=== PATIENT | female | born 1950 | race Caucasian/White ===

== ENCOUNTER 2018-01-18 10:16 | Outpatient (CLI) | payer MEDICARE, BC, SELFPAY ==
[2018-01-18 10:44] LABS: HCT 43.2 % (36.0-46.0); HGB 14.3 g/dL (12.0-15.5); Mean Corp. HGB Concentration 33.1 g/dL (32.0-36.0); Mean Corpuscular Hemoglobin 30.4 pg (27.0-33.0); Mean Corpuscular Volume 91.9 fL (80-95); Mean Platelet Volume 10.3 fL (8.0-11.0); Platelet Count 215 x1000/uL (130-400); RBC Distribution Width 12.8 % (11.7-14.6)
[2018-01-18 11:16] LABS: ALT 27 U/L (12-78); AST 27 U/L (15-37); Albumin 3.9 g/dL (3.4-5.0); Alkaline Phosphatase 60 U/L (46-116); Anion Gap 9.7 mmol/L (3-11); BUN 21 mg/dL (7-18); Bilirubin, Total 0.5 mg/dL (0.2-1.0); CO2 27.3 mmol/L (21.0-32.0); CREATININE 0.85 mg/dL (0.55-1.02); Calcium 9.1 mg/dL (8.5-10.1); Chloride 104 mmol/L (98-107); Cholesterol 235 mg/dL (50-200); Glucose 91 mg/dL (70-100); HDL Cholesterol 91 mg/dL (40-60); LDL CHOLESTEROL 134 mg/dL (<100); Sodium 141 mmol/L (136-145); Total Protein 7.1 g/dL (6.4-8.2); Triglyceride 74 mg/dL (30-150)
[2018-01-18 11:25] LABS: TSH (W/Ref FT4) 3.36 uIU/mL (0.358-3.74)
== END 2018-01-18 10:36 ==
PROVIDERS: PCP Nurse Practitioner; Visit Provider Nurse Practitioner
DX: G56.02 Carpal tunnel syndrome, left upper limb (principal); E78.5 Hyperlipidemia, unspecified; R53.83 Other fatigue
CPT/HCPCS: 36415; 80053; 80061; 83721; 85027; 84443

== ENCOUNTER 2018-02-07 00:46 | Outpatient (CLI) | payer MEDICARE, BC, SELFPAY ==
--- NOTE | 2018-02-07 11:30 | DI.MAMMO_ITS ---
SYMPTOM/DIAGNOSIS: BREAST CANCER SCREEN, Z12.31 BILATERAL SCREENING MAMMOGRAM: Mammograms were interpreted according to the usual protocol including computer analysis with CAD system, tomosynthesis and C view imaging. Comparison is made with 2017 from [facility]. The breasts are composed of scattered fibroglandular densities, breast density Category B. There are no suspicious masses or suspicious microcalcifications. There has been no significant change. IMPRESSION: Category 1-B, negative mammogram. Yearly screening mammography is recommended. SA ASSESSMENT OF FINDINGS: Negative. Category 1. Patient will receive a letter notifying them of these results. BI-RADS category B. There are scattered areas of fibroglandular density.
== END 2018-02-07 01:06 ==
PROVIDERS: PCP Nurse Practitioner; Visit Provider Nurse Practitioner
DX: Z12.31 Encounter for screening mammogram for malignant neoplasm of breast (principal)
CPT/HCPCS: 77063; 77067

== ENCOUNTER 2019-01-22 09:53 | Outpatient (CLI) | payer MEDICARE, BC, SELFPAY ==
[2019-01-23 11:36] LABS: Hepatitis C Ab w Rflx HCV PCR Negative (Negative)
== END 2019-01-22 10:13 ==
PROVIDERS: PCP Nurse Practitioner; Visit Provider Nurse Practitioner
DX: Z11.59 Encounter for screening for other viral diseases (principal); R69 Illness, unspecified
CPT/HCPCS: 36415; 86803

== ENCOUNTER 2019-02-21 00:34 | Outpatient (CLI) | payer MEDICARE, BC, SELFPAY ==
--- NOTE | 2019-02-21 12:04 | DI.MAMMO_ITS ---
EXAM: MAMMO SCREENING CLINICAL HISTORY: screening, Z12.39 TECHNIQUE: Mammograms were interpreted according to the usual protocol including computer analysis w [employer] CAD system, tomosynthesis and C-view imaging. COMPARISON: Current examination is compared with previous examinations including February 2018 FINDINGS: Breasts are of moderate density with fairly symmetrical distribution of fibroglandular tissue. No do minant mass or clumped microcalcification is identified in either breast. Current examination is com pared with previous examinations including February 2018 and there has been no gross interval change in appearance in comparison with the previous studies. IMPRESSION: No specific evidence of malignancy at this time. Routine screening examinations are suggested at year ly intervals due to the family history of breast carcinoma. Category 1, breast density category B. BI-RADS Cat 1 - Negative Breast Density - Category B - Scattered areas of fibroglandular density
== END 2019-02-21 00:54 ==
PROVIDERS: PCP Nurse Practitioner; Visit Provider Nurse Practitioner
DX: Z12.31 Encounter for screening mammogram for malignant neoplasm of breast (principal); Z80.3 Family history of malignant neoplasm of breast
CPT/HCPCS: 77063; 77067

== ENCOUNTER → 2019-03-21 10:08 | Outpatient (BNVA) | payer MEDICARE, BC, SELFPAY | PROVIDERS: PCP Nurse Practitioner; Referring Provider Nurse Practitioner; Visit Provider Physical Therapy Assistant | DX: Z12.11 Encounter for screening for malignant neoplasm of colon (principal); Z86.010 Personal history of colon polyps ==

== ENCOUNTER 2019-04-08 07:47 | Day surgery (SDC) | payer MEDICARE, BC, SELFPAY ==
--- NOTE | 2019-04-08 06:38 | W.COLOREPORT ---
Date of service: 04/08/19 Time of Service: 08:53 Colonoscopy Report Date of procedure: 04/08/19 Pre-op diagnosis general: Hx of colon polyps Post-op diagnosis procedure note: same (and Polyps x3, diverticulosis) Procedure: Colonoscopy with polypectomy by cold forceps Surgeon: Cathie Andino Anesthesia proc note operative: other (General/ ASA 2/Nish Ramirez, DESTINY) Estimated blood loss (mL): 5 Pathology: other (Ascending colon x2, Transverse colon x1) Complications: None Disposition: same day Indications: The patient is here for Colonoscopy pre-op. Her last screening was in 2015 and was remarkable for tubulovillious adenoma. She has no family history of colon cancer. She has not had any bowel habit changes. -Discussed colonoscopy bowel prep as well as the procedure. Discussed possible complications of the procedure to include bleeding, pain, perforation, missed small lesion/polyp, sore throat, aspiration and adverse reaction to the medications. Questions were answered to patient?s satisfaction. No guarantees were implied or given. Prep: Miralax/Dulcolax Procedure Start Time: :53 Procedure End Time: 09:34 Retraction Time: 34 minutes Findings: 3 polyps, all sessile. The ascending colon polyps were < 1 cm in size The Transverse polyp was >1 cm in size and due to its location had to be removed in a piecemeal fashion. Moderate sigmoid diverticulosis Procedure Description: After informed consent was obtained the patient was taken to the procedure room and placed in a left decubitous position. Monitors were applied and a time out was done. The patients name, date of , procedure, allergies to medications and metal in their body was reviewed. The patient was then sedated. Once sedated and comfortable a rectal exam was done. External exam was normal. Internal exam revealed a normal sphincter tone and no palpable masses. The scope was then introduced and retro-flexed. No internal hemorrhoids, polyps or masses were identified on retro-flexion. The scope was then advanced to the cecum without difficulty. The TI and appendiceal orifice were identified. The prep was adequate. The scope was then slowly retracted over 34 minutes back into the rectum. Polyps were removed with cold forceps in the ascending colon x2 and the Transverse colon x1. The polyps were all sessile. The transverse polyp was >1 cm in size and due to its location behind a fold I had to remove it piecemeal. There was also moderate diverticulosis noted in the sigmoid colon. The scope was removed and the patient was woken up and taken back to Same day surgery in stable condition. The patient tolerated the procedure well and there were no immediate complications. Follow up: The patient should follow up in 3 years unless they develop changes in bowel habits or other new gastrointestinal complaints.
--- NOTE | 2019-04-08 06:40 | W.PM.DSUDISC ---
Discharge Plan Disposition Patient Disposition: HOME Condition: Good Discharge Details Reason For Visit: SCREENING Attending Provider: Cathie Andino Primary Care Provider: Neema Duncan Home Meds and New Rx's Prescriptions: Continued Shingrix (PF) 50 mcg/0.5 mL suspension for reconstitution 50 mcg IM ONCE Qty: 1 RF: 1 Lumigan 0.01 % drops 1 drp OP DAILY RF: 0 multivitamin [Daily Vitamin] 1 EACH tablet 1 ea PO DAILY RF: 0 calcium carbonate-vitamin D3 [Calcium 500 With D] 1 EACH tablet 1 ea PO BID RF: 0 TRIAMCINOLONE ACETONIDE 30 GM OINT...G. 30 gm Topical PRN PRNRF: 0 Discontinued polyethylene glycol 3350 17 gram/dose powder 238 g PO ONCE Qty: 238 RF: 0 bisacodyl [Dulcolax (bisacodyl)] 5 mg tablet,delayed release (DR/EC) 5 mg PO ONCE Qty: 4 RF: 0 Discharge Instructions Instructions: Colorectal Polyps (DC), Diverticulosis (DC) Additional Instructions: Findings: 3 polyps Diverticulosis Follow up: Most likely 3 years Please call if you develop: fevers >101.5 Nausea or Vomiting Abdominal pain that is not transient DAY SURGERY UNIT POST ENDOSCOPY INSTRUCTIONS 1. Because there will be medication in your system for the next 24 hours, you may feel a little sleepy. Your coordination will be affected. Therefore: a. Do not drive or operate dangerous equipment for 24 hours. b. Do not drink alcohol beverages for 24 hours (not even beer). c. Plan to go home and rest for the day. 2. Generally there are no restrictions on your activity after a day or so has gone by, but you may feel a bit fatigued for a few days. 3 After you arrive home you may have a light meal and return to a normal diet as you can tolerate it without feeling sick to your stomach. 4. After surgery, you may feel pain or discomfort. This should be only transient, but if it persists please contact your doctor. 5. If there are any questions regarding the findings of your procedure, please feel free to contact your doctor. 6. If you are unable to contact your doctor with a problem, contact the hospital at [phone]. 7. Continue all your regular medications unless directed otherwise. I understand the above instructions and have no questions. Signature of Patient or Responsible Adult Escort Date/Time Name of Responsible Adult Escort Signature of Nurse Date/Time Activity:: Activity as Tolerated Diet:: High Fiber Discharge Orders Discharge Orders: Discharge Order (Routine); Ordered 04/08/19 Ordered By: Cathie Andino
[2019-04-08 08:08] VITALS: BP 111/65; PULSE 66; RESP 16; TEMP 37; O2SAT 97
[2019-04-08] MEDS: Lactated Ringers 1,000 ML 80 ML IV (08:18)
--- NOTE | 2019-04-08 09:03 | BOWEL_PTH ---
PATIENT: Natalie Gomez LOC: [facility] U#:[id number] AGE/SX: 68/F ROOM: RE04/08/[address]: Cathie Andino MD : 1950 BED: DIS: 04/08/2019 SPEC #: [id number] RECD: 04/08/19 12:42 STATUS: HUSEYIN REQ #: [id number] STEPHANIE: 04/08/19 09:[address]: Cathie Andino DEPT: Surgical Specimen RECD BY: Roseline Frost ENTERED: 04/08/19 12:44 SP TYPE: Bowel OTHR DR: Neema Duncan APRN Tissues: 1 - BIOPSY BOWEL 2 - BIOPSY BOWEL 3 - BIOPSY BOWEL Procedures: GROSS AND MICRO LEVEL 4 Comments: [id number]
[2019-04-08 10:10] VITALS: BP 98/52; PULSE 63; RESP 18; TEMP 36.6; O2SAT 100
== END 2019-04-08 10:25 | disposition home or self-care (01) ==
LOC: SUR 07:54
PROVIDERS: PCP Nurse Practitioner; Visit Provider Surgery
PROC: 0DJD8ZZ Inspection of Lower Intestinal Tract, Via Natural or Artificial Opening Endoscopic (ICD-10-PCS; CPT 45378; principal; 2019-04-08 09:00)
DX: Z12.11 Encounter for screening for malignant neoplasm of colon (principal); D12.2 Benign neoplasm of ascending colon; D12.3 Benign neoplasm of transverse colon; K57.30 Diverticulosis of large intestine without perforation or abscess without bleeding; Z86.010 Personal history of colon polyps
CPT/HCPCS: 45380; 88305

== ENCOUNTER 2020-04-16 01:19 | Outpatient (CLI) | payer MEDICARE, BC, SELFPAY ==
--- NOTE | 2020-04-16 07:15 | DI.MAMMO_ITS ---
EXAM: MAMMO SCREENING CLINICAL HISTORY: screening,z12.39 TECHNIQUE: Mammograms were interpreted according to the usual protocol including computer analysis w [employer] CAD system, tomosynthesis and C-view imaging. COMPARISON: 2016 through 2018 FINDINGS: The breasts are composed of scattered fibroglandular densities, Breast Density category B. No suspicious masses or suspicious microcalcifications are seen. No skin thickening or abnormal axillary lymph nodes are seen. There has been no significant change from prior exams. IMPRESSION: BI-RADS Category 1, Negative mammogram Yearly screening mammography is recommended. Breast Density - Category B, scattered fibroglandular densities. A negative radiographic report should not delay biopsy if a dominant or clinically suspicious mass is present. Up to ten percent of cancers are not identified on mammography. A negative report may reinforce clinical impression. Adenosis and dense breasts may obscure an underlying neoplasm. False positive reports average 6 to 10%. Patient will receive a letter notifying them of these results.
== END 2020-04-16 01:20 ==
LOC: DI 01:19
PROVIDERS: PCP Nurse Practitioner; Visit Provider Nurse Practitioner
DX: Z12.31 Encounter for screening mammogram for malignant neoplasm of breast (principal)
CPT/HCPCS: 77063; 77067

== ENCOUNTER 2020-06-29 09:25 | Day surgery (SDC) | payer MEDICARE, BC, SELFPAY ==
--- NOTE | 2020-06-29 09:31 | W.ANESPRE ---
Anesthesia Assessment and Plan Anesthesia History Personal History: No History of Anesthesia Complications Family History: No Family History of Anesthesia Complications Exercise Tolerance Exercise Tolerance: Metabolic Equivalents<4 Pertinent Negatives Pertinent Negatives: No Symptoms of GERD, No Major Cardiovascular Symptoms or Complaints and No Major Pulmonary Symptoms or Complaints Cardiac & Pulmonary Exam Cardiac Exam: Normal S1/S2 Heart Sounds Pulmonary Exam: Clear Bilateral Breath Sounds Airway Exam Known Difficult Airway: No Mallampati Class: 1 Mouth Opening: Normal (> 3cm) Thyromental Distance: Greater than 3 cm Neck Range of Motion: Full ROM Neck Circumference: Normal Teeth Condition: Normal Dentition ASA Classification ASA Score: ASA 2 ASA Emergency: No NPO Status NPO Status: NPO Clears >2 hours, Solids >8 hours Status Status: Not Relevant due to Medical History Anesthesia Plan Anesthesia Technique: MAC Anesthesia Airway Planned: Natural Airway Monitors Used: Standard Monitors General Info Date of Service This is a Shared Provider Document. All providers who document on this will be required to sign document once completed. Please Communicate with Team Date Performed: 06/29/20 Height: 5 ft 2.32 in Weight: 58.23 kg Body Mass Index (BMI): 23.2 Surgical Procedure: Operation Date: 06/29/20 12:40 Proposed Procedures Side Surgeon p Intraocular Stent Placement/IOL Implant Right Josiah Choi MD Vital Signs and Lab Results Point of Care Results Nursing Point of Care Results: No Data to Display Lab Results Blood Type / Crossmatch: No Data to Display Complete Blood Count: White Blood Count 7.10 k/cumm (4.4-10.8) 01/18/18 10:35 01/18/18 Red Blood Count 4.70 m/cumm (4.00-5.20) 01/18/18 10:35 01/18/18 Hemoglobin 14.3 g/dL (12.0-15.5) 01/18/18 10:35 01/18/18 Hematocrit 43.2 % (36.0-46.0) 01/18/18 10:35 01/18/18 Platelet Count 215 x1000/uL (130-400) 01/18/18 10:35 01/18/18 Complete Metabolic Panel: Sodium Level 141 mmol/L (136-145) 01/18/18 10:35 01/18/18 Potassium Level 4.0 mmol/L (3.5-5.1) 01/18/18 10:35 01/18/18 Chloride Level 104 mmol/L (98-107) 01/18/18 10:35 01/18/18 Carbon Dioxide Level 27.3 mmol/L (21.0-32.0) 01/18/18 10:35 01/18/18 Blood Urea Nitrogen 21 mg/dL (7-18) H 01/18/18 10:35 01/18/18 Creatinine 0.85 mg/dL (0.55-1.02) 01/18/18 10:35 01/18/18 Calcium Level 9.1 mg/dL (8.5-10.1) 01/18/18 10:35 01/18/18 Albumin 3.9 g/dL (3.4-5.0) 01/18/18 10:35 01/18/18 Glucose Level 91 mg/dL (70-100) 01/18/18 10:35 01/18/18 Liver Function Panel: Alanine Aminotransferase (ALT/SGPT) 27 U/L (12-78) 01/18/18 10:35 01/18/18 Aspartate Amino Transf (AST/SGOT) 27 U/L (15-37) 01/18/18 10:35 01/18/18 Coagulation Panel: No Data to Display Cardiac Panel: No Data to Display Arterial Blood Gas: No Data to Display Venous Blood Gas: No Data to Display Pancreas Panel: No Data to Display Thyroid Panel: Thyroid Stimulating Hormone (TSH) 3.36 uIU/mL (0.358-3.74) 01/18/18 10:35 01/18/18 Infectious Disease: Group A Streptococcus Rapid Negative 05/20/16 09:15 05/20/16 Hepatitis C Antibody Negative (Negative) 01/22/19 10:11 01/22/19 Blood Cultures: Blood Culture Toxicology Panel: No Data to Display Panel: No Data to Display PFSH Medical History Bilateral cataracts Carpal tunnel syndrome of left wrist Cystocele Glaucoma Hyperlipidemia Migraine Osteopenia Rectocele Uterine prolapse Surgical History Colonoscopy - IV Sedation (03/09/15) w/ bx excision Pilar cysts scalp (01/12/17) Dr Hammer H/O colonoscopy (~04/2019) 2020 - tubular adenoma x2. Sessile serrated x1 Hx of cataract surgery Tooth extraction wisdom teeth Social History Smoking/Tobacco Use Status: Never Smoking risk assessment performed?: Yes Drug use: Never Substance use type: does not use Caregiver/Support person: No Communication Needs: None Do you think of yourself as: straight/heterosexual Current gender identity: female What type of physical activity do you participate in: walking, regular exercise and weight lifting Frequency: 1-2 times per week Seatbelt use: always Water heater temp set <120 deg: Yes Working smoke detector in home: Yes Fire extinguisher in home: Yes Carbon monox detector in home: Yes Do you feel safe at home: Yes Do you feel safe in your relationship?: Yes Meds Allergies and Home Medications Allergies Allergy/AdvReac Type Severity Reaction Status Date / Time No Known Allergies Allergy Verified 06/29/20 09:56 Current Visit Medication Generic Name Dose Route Start Last Admin Trade Name Freq PRN Reason Stop Dose Admin Acetaminophen 1,000 mg 06/29/20 06:00 Acetaminophen 500 Mg Tab PO Q4H PRN PRN Miscellaneous Medication 0 ml 06/29/20 06:00 Prednisolone 1%, Moxifloxacin 0.5%, Nepafenac 0.1% 5ml Btl OD DIRECTED [facility] Miscellaneous Medication 0 ml 06/29/20 06:00 06/29/20 10:10 Tropicam./Phenyleph. (1/2.5%) 5 Ml Btl OD 1 drp DIRECTED IRVIN Administration Tetracaine HCl 0 ml 06/29/20 06:00 Tetracaine 0.5% 4 Ml Btl OD DIRECTED [facility] Home Medication Medication Instructions Recorded calcium carbonate-vitamin D3 1 ea PO BID 06/12/12 [Calcium 500 With D] multivitamin [Daily Vitamin] 1 ea PO DAILY 06/12/12 bimatoprost 0.01 % eye drops 1 drp OP DAILY 01/22/19 eye promise 1 tab PO DAILY 06/22/20
[2020-06-29] MEDS: Tropicam./Phenyleph. (1/2.5%) 5 ML BTL OD ×3 (09:51→10:10)
[2020-06-29 09:57] VITALS: BP 126/71; PULSE 84; RESP 16; TEMP 36.7; O2SAT 97
--- NOTE | 2020-06-29 10:22 | ANES.PREOP_ITS ---
Anesthesia Assessment and Plan Anesthesia History Personal History: No History of Anesthesia Complications Family History: No Family History of Anesthesia Complications Exercise Tolerance Exercise Tolerance: Metabolic Equivalents<4 Pertinent Negatives Pertinent Negatives: No Symptoms of GERD, No Major Cardiovascular Symptoms or Complaints and No Major Pulmonary Symptoms or Complaints Cardiac & Pulmonary Exam Cardiac Exam: Normal S1/S2 Heart Sounds Pulmonary Exam: Clear Bilateral Breath Sounds Airway Exam Known Difficult Airway: No Mallampati Class: 1 Mouth Opening: Normal (> 3cm) Thyromental Distance: Greater than 3 cm Neck Range of Motion: Full ROM Neck Circumference: Normal Teeth Condition: Normal Dentition ASA Classification ASA Score: ASA 2 ASA Emergency: No NPO Status NPO Status: NPO Clears >2 hours, Solids >8 hours Status Status: Not Relevant due to Medical History Anesthesia Plan Anesthesia Technique: MAC Anesthesia Airway Planned: Natural Airway Monitors Used: Standard Monitors General Info Date of Service This is a Shared Provider Document. All providers who document on this will be required to sign document once completed. Please Communicate with Team Date Performed: 06/29/20 Height: 5 ft 2.32 in Weight: 59.2 kg Body Mass Index (BMI): 23.6 Surgical Procedure: Operation Date: 06/29/20 12:40 Proposed Procedures Side Surgeon p Intraocular Stent Placement/IOL Implant Right Josiah Choi MD Vital Signs and Lab Results Vital Signs Most Recent Vital Signs in EMR: Most Recent Vital Signs Temp Pulse Resp BP Pulse Ox 36.7 C 84 16 126/71 97 06/29/20 09:57 06/29/20 09:57 06/29/20 09:57 06/29/20 09:57 06/29/20 09:57 Point of Care Results Nursing Point of Care Results: No Data to Display Lab Results Blood Type / Crossmatch: No Data to Display Complete Blood Count: White Blood Count 7.10 k/cumm (4.4-10.8) 01/18/18 10:35 01/18/18 Red Blood Count 4.70 m/cumm (4.00-5.20) 01/18/18 10:35 01/18/18 Hemoglobin 14.3 g/dL (12.0-15.5) 01/18/18 10:35 01/18/18 Hematocrit 43.2 % (36.0-46.0) 01/18/18 10:35 01/18/18 Platelet Count 215 x1000/uL (130-400) 01/18/18 10:35 01/18/18 Complete Metabolic Panel: Sodium Level 141 mmol/L (136-145) 01/18/18 10:35 01/18/18 Potassium Level 4.0 mmol/L (3.5-5.1) 01/18/18 10:35 01/18/18 Chloride Level 104 mmol/L (98-107) 01/18/18 10:35 01/18/18 Carbon Dioxide Level 27.3 mmol/L (21.0-32.0) 01/18/18 10:35 01/18/18 Blood Urea Nitrogen 21 mg/dL (7-18) H 01/18/18 10:35 01/18/18 Creatinine 0.85 mg/dL (0.55-1.02) 01/18/18 10:35 01/18/18 Calcium Level 9.1 mg/dL (8.5-10.1) 01/18/18 10:35 01/18/18 Albumin 3.9 g/dL (3.4-5.0) 01/18/18 10:35 01/18/18 Glucose Level 91 mg/dL (70-100) 01/18/18 10:35 01/18/18 Liver Function Panel: Alanine Aminotransferase (ALT/SGPT) 27 U/L (12-78) 01/18/18 10:35 01/18/18 Aspartate Amino Transf (AST/SGOT) 27 U/L (15-37) 01/18/18 10:35 01/18/18 Coagulation Panel: No Data to Display Cardiac Panel: No Data to Display Arterial Blood Gas: No Data to Display Venous Blood Gas: No Data to Display Pancreas Panel: No Data to Display Thyroid Panel: Thyroid Stimulating Hormone (TSH) 3.36 uIU/mL (0.358-3.74) 01/18/18 10:35 01/18/18 Infectious Disease: Group A Streptococcus Rapid Negative 05/20/16 09:15 05/20/16 Hepatitis C Antibody Negative (Negative) 01/22/19 10:11 01/22/19 Blood Cultures: Blood Culture Toxicology Panel: No Data to Display Panel: No Data to Display PFSH Active Problems Active Problems: Problem Status Category Onset Code Carpal tunnel syndrome of left wrist Medical 09/04/14 G56.02 Cystocele Medical 06/12/12 Migraine Medical 05/26/11 G43.909 Osteopenia Medical 06/21/12 M85.80 Other and unspecified hyperlipidemia Medical 06/21/12 E78.5 Rectocele Medical 06/12/12 N81.6 Tubulovillous adenoma of colon Medical 03/13/15 D12.6 Uterine prolapse Medical 06/04/12 N81.4 Vaginal wall prolapse Medical 06/04/12 N81.10 Medicare annual wellness visit, subsequent Medical Z00.00 Nuclear sclerotic cataract of right eye Medical H25.11 Cortical cataract of right eye Medical H26.9 Primary open-angle glaucoma, right eye, indeterminate stage Medical H40.1114 Primary open-angle glaucoma, left eye, indeterminate stage Medical H40.1124 Bilateral cataracts Medical H26.9 Glaucoma Medical H40.9 Medical History Bilateral cataracts Carpal tunnel syndrome of left wrist Cystocele Glaucoma Hyperlipidemia Migraine Osteopenia Rectocele Uterine prolapse Surgical History Colonoscopy - IV Sedation (03/09/15) w/ bx excision Pilar cysts scalp (01/12/17) Dr Ayala H/O colonoscopy (~04/2019) 2020 - tubular adenoma x2. Sessile serrated x1 Hx of cataract surgery Tooth extraction wisdom teeth Social History Smoking/Tobacco Use Status: Never Smoking risk assessment performed?: Yes Drug use: Never Substance use type: does not use Caregiver/Support person: No Communication Needs: None Do you think of yourself as: straight/heterosexual Current gender identity: female What type of physical activity do you participate in: walking, regular exercise and weight lifting Frequency: 1-2 times per week Seatbelt use: always Water heater temp set <120 deg: Yes Working smoke detector in home: Yes Fire extinguisher in home: Yes Carbon monox detector in home: Yes Do you feel safe at home: Yes Do you feel safe in your relationship?: Yes Meds Allergies and Home Medications Allergies Allergy/AdvReac Type Severity Reaction Status Date / Time No Known Allergies Allergy Verified 06/29/20 09:56 Current Visit Medication Generic Name Dose Route Start Last Admin Trade Name Avinash PRN Reason Stop Dose Admin Acetaminophen 1,000 mg 06/29/20 06:00 Acetaminophen 500 Mg Tab PO Q4H PRN PRN Miscellaneous Medication 0 ml 06/29/20 06:00 Prednisolone 1%, Moxifloxacin 0.5%, Nepafenac 0.1% 5ml Btl OD DIRECTED [facility] Miscellaneous Medication 0 ml 06/29/20 06:00 06/29/20 10:10 Tropicam./Phenyleph. (1/2.5%) 5 Ml Btl OD 1 drp DIRECTED IRVIN Administration Tetracaine HCl 0 ml 06/29/20 06:00 Tetracaine 0.5% 4 Ml Btl OD DIRECTED [facility] Home Medication Medication Instructions Recorded calcium carbonate-vitamin D3 1 ea PO BID 06/12/12 [Calcium 500 With D] multivitamin [Daily Vitamin] 1 ea PO DAILY 06/12/12 bimatoprost 0.01 % eye drops 1 drp OP DAILY 01/22/19 eye promise 1 tab PO DAILY 06/22/20
[2020-06-29 10:25] VITALS: BMI 23.6
[2020-06-29 10:26] VITALS: BMI 23.2
[2020-06-29] MEDS: Tetracaine 0.5% 4 ML BTL OD (10:52)
[2020-06-29] MEDS: Duovisc Viscoelastic System EACH 1 EACH (10:53)
[2020-06-29] MEDS: Balanced Salt Soln.-PLUS 500 ML BAG (10:53)
[2020-06-29] MEDS: Lidocaine 2% Jelly 6 ML SYR (10:54)
[2020-06-29] MEDS: Lidocaine 1% Pres-Free 5 ML VIAL (10:54)
[2020-06-29] MEDS: Povidone-Iodine Ophth 30 ML BTL (10:56)
[2020-06-29 11:25] VITALS: BP 111/66; PULSE 81; RESP 16; TEMP 36.2; O2SAT 99
--- NOTE | 2020-06-29 11:28 | W.PM.DSUDISC ---
Discharge Plan Disposition Patient Disposition: HOME Condition: Good Discharge Details Attending Provider: Josiah Choi Primary Care Provider: Neema Duncan Home Meds and New Rx's Prescriptions: No Action Lumigan 0.01 % drops 1 drp OP DAILY RF: 0 eye promise 1 tab PO DAILY RF: 0 multivitamin [Daily Vitamin] 1 EACH tablet 1 ea PO DAILY RF: 0 calcium carbonate-vitamin D3 [Calcium 500 With D] 1 EACH tablet 1 ea PO BID RF: 0 Discharge Instructions Stand Alone Forms: Post-op Topical Cataract, Cris Pulliamey (DSU) Discharge Orders Discharge Orders: Discharge Order (Routine); Ordered 06/29/20 Ordered By: Josiah Choi DS: Diagnosis Discharge Diagnosis (1) Primary open-angle glaucoma, right eye, indeterminate stage: Status: Chronic (2) Nuclear sclerotic cataract of right eye: Status: Resolved (3) Cortical cataract of right eye: Status: Resolved
--- NOTE | 2020-06-29 11:29 | W.PM.OP ---
Date of service: 06/29/20 Time of Service: 11:29 Operative Note Operative Note DATE OF PROCEDURE: 06/29/20 PRE-OP DIAGNOSIS: Nuclear/cortical cataract, right eye Primary open-angle glaucoma, right eye, indeterminate stage Poorly dilating pupil, right eye POST-OP DIAGNOSIS: same PROCEDURE: 1. Cataract extraction using phacoemulsification with intraocular lens implant, right eye 2. Insertion of multiple anterior segment aqueous drainage devices (Glaukos iStent inject x 1) into trabecular meshwork, right eye 3. Pupillary dilation and iris stabilization with 7.0 mm Malyugin Ring SURGEON: Josiah Choi ANESTHESIA TYPE: Local By Surgeon and MAC Refer to Anesthesia Record PATHOLOGY: none sent COMPLICATIONS: None Patient was transported to: same day Patient's condition: stable Implants: 1. Alan [employer] Alan [employer] / [employer] Tecnis ZCB00 intraocular lens 2. Glaukos iStent inject trabecular micro-bypass stent x 1 Indications: 1. Progressive decreased vision due to cataract, right eye 2. Primary open angle glaucoma, right eye Procedure Description: CATARACT SURGERY OPERATIVE REPORT PREOPERATIVE DIAGNOSIS: Nuclear/cortical cataract, right eye Poorly dilating pupil, right eye Primary open-angle glaucoma, right eye, indeterminate stage POSTOPERATIVE DIAGNOSIS: Same OPERATION: 1. Cataract extraction using phacoemulsification with posterior chamber intraocular lens implant, right eye. 2. Insertion of multiple anterior segment aqueous drainage devices (Glaukos iStent inject x 1) into trabecular meshwork, right eye 3. Pupillary dilation and iris stabilization with 7.0 mm Malyugin ring IOL: IOL Para Professional/Model: [employer]J [employer] / PHILLIP Tecnis ZCB00 IOL Power: + 20.0 diopters IOL Serial Number: [id number] Optic Diameter: 6.0mm Haptic/Overall Diameter: 13.0mm PHACO INFO: Eitan Centurion Vision System with OZil and Active Fluidics Cumulative Dispersed Energy (CDE): 4.86 seconds TRABECULAR MICRO-BYPASS STENT INFO: Glaukos iStent inject x 1 Reference Number: [id number] Serial Number: [id number] US [id number] SURGEON: Josiah Choi MD, RADHA ANESTHESIA: Monitored Anesthesia Care (MAC), with local sub-tenon's anesthetic infiltration COMPLICATIONS: None SPECIMENS: None INDICATIONS FOR PROCEDURE: The patient is a 70-year-old lady with history of primary open-angle glaucoma, currently managed on Lumigan nightly. She has developed a visually symptomatic nuclear and cortical cataract and desires cataract surgery attempt to improve and maximize her vision. The option of a trabecular micro-bypass stent at the time of cataract surgery was offered to the patient and she wished to proceed. PROCEDURE: The correct surgical eye was identified and marked as the right eye and the pupil was dilated in the preoperative area using mydriatics and cycloplegics. The dilated pupil size was 4.0 mm. Oral sedation was administered in the form of an Imprimis MKO Melt (midazolam 3mg/ketamine 25mg/ondansetron 2mg). The patient was brought to the operating room where cardiopulmonary monitoring was instituted and surgical time-out was performed, confirming the correct operative eye and IOL power. Topical anesthesia was administered and ophthalmic povidone-iodine 5% was instilled into the conjunctival fornices. Lidocaine gel was applied to the cornea and the pato-ocular area was prepped with Betadine 10% solution and draped in the usual sterile fashion for intraocular surgery, including an aperture drape. A Tegaderm transparent film dressing was cut in half and used to cover the lashes and lid margins. Care was taken to sequester the lashes and lid margins under the Tegaderm dressing. A lid speculum was placed between the lids of the operative eye and the Austin-Logan operating microscope was maneuvered into position. Katie scissors were then used to make a conjunctival buttonhole approximately 6mm posterior to the limbus in the inferonasal quadrant. Blunt dissection was carried out to expose bare sclera, and a blunt-tipped sub-tenon?s anesthesia cannula was introduced and passed posteriorly along the globe where non-preserved plain lidocaine was injected into posterior sub-Tenon?s space. A sideport knife was used to make a paracentesis port inferiortemporally. Intraocular phenylephrine/lidocaine was injected into the anterior chamber. The pupil failed to dilate past 4 mm. The anterior chamber was then filled with viscoelastic. A 2.4mm keratome knife was used to create a half-thickness groove at the limbus and then to construct a three-plane near-clear corneal tunnel extending 2.0mm into clear cornea in the superiortemporal position. . A 7.0 mm Malyugin Ring was inserted into the pupillary space and engaged with the Kuglen hook. A flap was raised on the anterior capsule and capsulorhexis forceps were used to complete a continuous curvilinear capsulorhexis of 5.0 mm. Balanced salt solution was then used to perform cortical cleaving hydrodissection and nuclear hydrodelineation until the lens could be freely rotated within the capsular bag. The lens nucleus was then disassembled and removed within the capsular bag and iris plane using phacoemulsification. Residual cortical material was removed using the 45-degree angled silicone I/A tip with 0.3mm port. The posterior capsule was carefully polished to remove as much residual lens epithelial cells as safely possible. The capsular bag was then inflated and the anterior chamber deepened with viscoelastic. The lens implant described above was inserted into the capsular bag using the PHILLIP Bethesda Injector. A Kuglen hook was used to dial the IOL into position. The pupil expansion device was then removed in the reverse order of its incision. Residual viscoelastic was removed from posterior to the IOL, leaving viscoelastic in the anterior chamber. The anterior chamber was then slightly over-filled with viscoelastic. The microsope and the patient's head were tilted into the ideal position for viewing of the anterior chamber angle. Viscoelastic was placed on the cornea followed by a surgical goniolens, and the anterior chamber angle landmarks were identified. The Glaukos iStent inject handpiece was introduced into the anterior chamber and the insertion sleeve was retracted once the injector was distal to the pupillary margin. The trocar was advanced through the central portion of the trabecular meshwork and into the back wall of Schlemm's canal in the inferonasal quadrant, with care taken to ensure the micro-insertion tube was perpendicular to the trabecular meshwork. The trabecular meshwork was lightly dimpled and the actuator button was pressed. When pulling away from the trabecular meshwork, the stent failed to stay in place. The trocar was again inserted into the trabecular meshwork and the actuator button pressed again. This time the stent stayed in good position within the trabecular meshwork.. The same procedure was then performed in the superiornasal quadrant,, but the stent failed to deploy into the trabecular meshwork despite 2 attempts.. The original stent was then examined and noted to be in good position within the trabecular meshwork. The microscope and the patients head were returned to the normal coaxial position. Viscoelatic was then removed from the anterior chamber using the I/A handpiece. The lens implant was noted to center nicely within the capsular bag. The incisions were stromally hydrated, and the anterior chamber was reformed using BSS. Then 0.4cc of moxifloxacin 1.5mg/ml were injected into the capsular bag and anterior chamber. The incisions were checked with a Weck spear and found to be secure. Several drops of ophthalmic povidone-iodine 5% were then applied to the eye followed by two drops of Imprimis combination prednisolone/moxifloxacin/nepafenac solution. The drapes were removed and a clear plastic protective eye shield was placed over the eye. The patient was then returned to Same Day Surgery in stable condition.
--- NOTE | 2020-06-29 11:40 | W.ANESPOSTOP ---
Postoperative Evaluation Date, Time and Location Date Performed: 06/29/20 Time Performed: 11:41 Patient Location: Day Surgery Unit Vital Signs Most Recent Imported Vital Signs: Most Recent Vital Signs Temp Pulse Resp BP Pulse Ox 36.2 C L 81 16 111/66 99 06/29/20 11:25 06/29/20 11:25 06/29/20 11:25 06/29/20 11:25 06/29/20 11:25 Assessment Mental Status: Awake (Alert & Oriented to Patient Baseline) Airway and Respiratory Function: Patent airway with normal (patient baseline) respiratory exam Cardiovascular Function: Hemodynamically Stable Hydration Status: Adequately Hydrated Nausea & Vomiting: No Nausea or Vomiting Pain: Pt. Denies Any Pain Peripheral Nerve Block: Patient did not receive a nerve block
[2020-06-29 11:55] VITALS: BP 114/68; PULSE 73; RESP 16; TEMP 36.4; O2SAT 98
== END 2020-06-29 12:15 | disposition home or self-care (01) ==
PROVIDERS: PCP Nurse Practitioner; Visit Provider Ophthalmology
PROC: (CPT 0191T; principal; 2020-06-29 12:30)
DX: H40.1114 Primary open-angle glaucoma, right eye, indeterminate stage (principal); H25.11 Age-related nuclear cataract, right eye; H25.011 Cortical age-related cataract, right eye; H57.09 Other anomalies of pupillary function
CPT/HCPCS: 0191T; 66982; C1783; V2632

== ENCOUNTER 2020-07-13 07:48 | Day surgery (SDC) | payer MEDICARE, BC, SELFPAY ==
[2020-07-13 08:22] VITALS: BP 110/61; PULSE 73; RESP 16; TEMP 36.6; O2SAT 99
[2020-07-13] MEDS: Tropicam./Phenyleph. (1/2.5%) 5 ML BTL OS ×3 (08:25→08:35)
--- NOTE | 2020-07-13 09:20 | W.ANESPRE ---
General Info Date of Service Date Performed: 07/13/20 Height: 5 ft 2.32 in Weight: 57.5 kg Body Mass Index (BMI): 22.9 Surgical Procedure: Operation Date: 07/13/20 10:40 Proposed Procedures Side Surgeon p Intraocular Stent Placement/IOL Implant Left Josiah Choi MD Meds Allergies and Home Medications Allergies Allergy/AdvReac Type Severity Reaction Status Date / Time No Known Allergies Allergy Verified 07/13/20 08:20 Home Medication Medication Instructions Recorded calcium carbonate-vitamin D3 1 ea PO BID 06/12/12 [Calcium 500 With D] multivitamin [Daily Vitamin] 1 ea PO DAILY 06/12/12 bimatoprost 0.01 % eye drops 1 drp OP DAILY 01/22/19 eye promise 1 tab PO DAILY 06/22/20 Current Visit Medications: Current Medications Generic Name Dose Route Start Last Admin Trade Name Freq PRN Reason Stop Dose Admin Acetaminophen 1,000 mg 07/13/20 06:00 Acetaminophen 500 Mg Tab PO Q4H PRN PRN Miscellaneous Medication 0 ml 07/13/20 06:00 Prednisolone 1%, Moxifloxacin 0.5%, Nepafenac 0.1% 5ml Btl OS DIRECTED IRVIN Miscellaneous Medication 0 ml 07/13/20 06:00 07/13/20 08:35 Tropicam./Phenyleph. (1/2.5%) 5 Ml Btl OS 1 drp DIRECTED IRVIN Administration Tetracaine HCl 0 ml 07/13/20 06:00 Tetracaine 0.5% 4 Ml Btl OS DIRECTED IRVIN PFSH Active Problems Active Problems: Problem Status Onset Code Carpal tunnel syndrome of left wrist 09/04/14 G56.02 Cystocele 06/12/12 Migraine 05/26/11 G43.909 Osteopenia 06/21/12 M85.80 Other and unspecified hyperlipidemia 06/21/12 E78.5 Rectocele 06/12/12 N81.6 Tubulovillous adenoma of colon 03/13/15 D12.6 Uterine prolapse 06/04/12 N81.4 Vaginal wall prolapse 06/04/12 N81.10 Medicare annual wellness visit, subsequent Z00.00 Nuclear sclerotic cataract of right eye H25.11 Cortical cataract of right eye H26.9 Primary open-angle glaucoma, right eye, indeterminate stage H40.1114 Primary open-angle glaucoma, left eye, indeterminate stage H40.1124 Cortical cataract of left eye H26.9 Nuclear sclerotic cataract of left eye H25.12 Bilateral cataracts H26.9 Glaucoma H40.9 Medical History Medical History Bilateral cataracts Carpal tunnel syndrome of left wrist Cystocele Glaucoma Hyperlipidemia Migraine Osteopenia Rectocele Uterine prolapse Surgical History Surgical History (Updated 07/13/20 @ 08:20 by Geeta Parker) Colonoscopy - IV Sedation (03/09/15) w/ bx excision Pilar cysts scalp (01/12/17) Dr Ayala H/O colonoscopy (~04/2019) 2020 - tubular adenoma x2. Sessile serrated x1 Hx of cataract surgery Lens implant with glaucome stent Tooth extraction wisdom teeth Tobacco Smoking/Tobacco Use Status: Never Passive smoking exposure: No Substance Use Substance use: Never Substance use type: does not use Vital Signs and Lab Results Vital Signs Most Recent Vital Signs in EMR: Most Recent Vital Signs Temp Pulse Resp BP Pulse Ox 36.6 C 73 16 110/61 99 07/13/20 08:22 07/13/20 08:22 07/13/20 08:22 07/13/20 08:22 07/13/20 08:22 Lab Results Blood Type / Crossmatch: No Data to Display Complete Blood Count: White Blood Count 7.10 k/cumm (4.4-10.8) 01/18/18 10:35 01/18/18 Red Blood Count 4.70 m/cumm (4.00-5.20) 01/18/18 10:35 01/18/18 Hemoglobin 14.3 g/dL (12.0-15.5) 01/18/18 10:35 01/18/18 Hematocrit 43.2 % (36.0-46.0) 01/18/18 10:35 01/18/18 Platelet Count 215 x1000/uL (130-400) 01/18/18 10:35 01/18/18 Complete Metabolic Panel: Sodium Level 141 mmol/L (136-145) 01/18/18 10:35 01/18/18 Potassium Level 4.0 mmol/L (3.5-5.1) 01/18/18 10:35 01/18/18 Chloride Level 104 mmol/L (98-107) 01/18/18 10:35 01/18/18 Carbon Dioxide Level 27.3 mmol/L (21.0-32.0) 01/18/18 10:35 01/18/18 Blood Urea Nitrogen 21 mg/dL (7-18) H 01/18/18 10:35 01/18/18 Creatinine 0.85 mg/dL (0.55-1.02) 01/18/18 10:35 01/18/18 Calcium Level 9.1 mg/dL (8.5-10.1) 01/18/18 10:35 01/18/18 Albumin 3.9 g/dL (3.4-5.0) 01/18/18 10:35 01/18/18 Glucose Level 91 mg/dL (70-100) 01/18/18 10:35 01/18/18 Liver Function Panel: Alanine Aminotransferase (ALT/SGPT) 27 U/L (12-78) 01/18/18 10:35 01/18/18 Aspartate Amino Transf (AST/SGOT) 27 U/L (15-37) 01/18/18 10:35 01/18/18 Coagulation Panel: No Data to Display Cardiac Panel: No Data to Display Arterial Blood Gas: No Data to Display Venous Blood Gas: No Data to Display Pancreas Panel: No Data to Display Thyroid Panel: Thyroid Stimulating Hormone (TSH) 3.36 uIU/mL (0.358-3.74) 01/18/18 10:35 01/18/18 Infectious Disease: Group A Streptococcus Rapid Negative 05/20/16 09:15 05/20/16 Hepatitis C Antibody Negative (Negative) 01/22/19 10:11 01/22/19 Blood Cultures: No Data to Display Toxicology Panel: No Data to Display Anesthesia Assessment and Plan Anesthesia History Personal History: No History of Anesthesia Complications Family History: No Family History of Anesthesia Complications Exercise Tolerance Exercise Tolerance: Metabolic Equivalents>4 Pertinent Negatives Pertinent Negatives: No Symptoms of GERD Cardiac & Pulmonary Exam Cardiac Exam: Normal S1/S2 Heart Sounds Pulmonary Exam: Clear Bilateral Breath Sounds Airway Exam Known Difficult Airway: No Mallampati Class: 2 Mouth Opening: Normal (> 3cm) Thyromental Distance: Greater than 3 cm Neck Range of Motion: Full ROM Neck Circumference: Normal Teeth Condition: Normal Dentition ASA Classification ASA Score: ASA 2 Emergency Case?: No NPO Status NPO Status: NPO Clears >2 hours, Solids >8 hours Anesthesia Plan Anesthesia Technique: MAC Anesthesia Airway Planned: Natural Airway Monitors Used: Standard Monitors
[2020-07-13 09:34] VITALS: BMI 22.9
[2020-07-13] MEDS: Tetracaine 0.5% 4 ML BTL OS (10:17)
[2020-07-13] MEDS: Balanced Salt Soln.-PLUS 500 ML BAG (10:18)
[2020-07-13] MEDS: Duovisc Viscoelastic System EACH 1 EACH (10:19)
[2020-07-13] MEDS: Lidocaine 1% Pres-Free 5 ML VIAL (10:20)
[2020-07-13] MEDS: Lidocaine 2% Jelly 6 ML SYR (10:20)
[2020-07-13] MEDS: Povidone-Iodine Ophth 30 ML BTL (10:24)
--- NOTE | 2020-07-13 10:32 | W.ANESPOSTOP ---
Postoperative Evaluation Date, Time and Location Date Performed: 07/13/20 Time Performed: 10:32 Patient Location: Day Surgery Unit Vital Signs Most Recent Imported Vital Signs: Most Recent Vital Signs Temp Pulse Resp BP Pulse Ox 36.6 C 73 16 110/61 99 07/13/20 08:22 07/13/20 08:22 07/13/20 08:22 07/13/20 08:22 07/13/20 08:22 Most Recent Manually Entered Vital Signs: Adult Blood Pressure: 123/67 Heart Rate: 72 Respirations: 16 Oxygen Saturation (%): 100 Temperature (C): 36.5 C Pain Score (0-10 Scale): 0 Pain Score Most Recent Pain Score: Most Recent Pain Score Pain Level 0 07/13/20 08:22 Assessment Mental Status: Awake (Alert & Oriented to Patient Baseline) Airway and Respiratory Function: Patent airway with normal (patient baseline) respiratory exam Cardiovascular Function: Hemodynamically Stable Hydration Status: Adequately Hydrated Nausea & Vomiting: No Nausea or Vomiting Pain: Pt. Denies Any Pain Peripheral Nerve Block: Other (Local by Dr. Choi)
[2020-07-13 10:33] VITALS: BP 123/67; PULSE 72; RESP 16; TEMPC 36.5; O2SAT 100
--- NOTE | 2020-07-13 10:33 | W.PM.DSUDISC ---
Discharge Plan Disposition Patient Disposition: HOME Condition: Good Discharge Details Attending Provider: Josiah Choi Primary Care Provider: Neema Duncan Home Meds and New Rx's Prescriptions: No Action Lumigan 0.01 % drops 1 drp OP DAILY RF: 0 eye promise 1 tab PO DAILY RF: 0 multivitamin [Daily Vitamin] 1 EACH tablet 1 ea PO DAILY RF: 0 calcium carbonate-vitamin D3 [Calcium 500 With D] 1 EACH tablet 1 ea PO BID RF: 0 Discharge Instructions Stand Alone Forms: Post-op Block Cataract, Post-op Topical Cataract, Press Ganey (DSU) Discharge Orders Discharge Orders: Discharge Order (Routine); Ordered 07/13/20 Ordered By: Josiah Choi DS: Diagnosis Discharge Diagnosis (1) Primary open-angle glaucoma, left eye, indeterminate stage: Status: Chronic (2) Nuclear sclerotic cataract of left eye: Status: Resolved (3) Cortical cataract of left eye: Status: Resolved
[2020-07-13 10:35] VITALS: BP 123/67; PULSE 70; RESP 16; TEMP 36.5; O2SAT 99
--- NOTE | 2020-07-13 10:35 | ROE_ITS ---
Date of service: 07/13/20 Time of Service: 10:35 Operative Note Operative Note DATE OF PROCEDURE: 07/13/20 PRE-OP DIAGNOSIS: Nuclear/cortical cataract, left eye Primary open-angle glaucoma, left eye, indeterminate stage PROCEDURE: 1. Cataract extraction using phacoemulsification with intraocular lens implant, left eye 2. Insertion of multiple anterior segment aqueous drainage devices (Glaukos iStent inject x 2) into trabecular meshwork, left eye SURGEON: Josiah Choi ANESTHESIA TYPE: Local By Surgeon and MAC Refer to Anesthesia Record ESTIMATED BLOOD LOSS: 0 PATHOLOGY: none sent COMPLICATIONS: None Patient was transported to: same day Patient's condition: stable Implants: 1. Alan [employer] / [employer] Tecnis ZCB00 intraocular lens 2. Glaukos iStent inject trabecular micro-bypass stent x 2 Indications: 1. Progressive decreased vision due to cataract, left eye 2. Primary open angle glaucoma, left eye Procedure Description: CATARACT SURGERY OPERATIVE REPORT PREOPERATIVE DIAGNOSIS: Nuclear/cortical cataract, left eye Primary open-angle glaucoma, left eye, indeterminate stage POSTOPERATIVE DIAGNOSIS: Same OPERATION: 1. Cataract extraction using phacoemulsification with posterior chamber intraocular lens implant, left eye. 2. Insertion of multiple anterior segment aqueous drainage devices (Glaukos iStent inject x 2) into trabecular meshwork, left eye IOL: IOL Insulation Sprayer/Model: [employer] / PHILLIP Tecnis ZCB00 IOL Power: + 20.0 diopters IOL Serial Number: [id number] Optic Diameter: 6.0mm Haptic/Overall Diameter: 13.0mm PHACO INFO: Eitan Centurion Vision System with OZil and Active Fluidics Cumulative Dispersed Energy (CDE): 6.66 seconds TRABECULAR MICRO-BYPASS STENT INFO: Glaukos iStent inject x 2 Reference Number: [id number] Serial Number: [id number] US 0221 SURGEON: Josiah Choi MD, RADHA ANESTHESIA: Monitored Anesthesia Care (MAC), with local sub-tenon's anesthetic infiltration COMPLICATIONS: None SPECIMENS: None INDICATIONS FOR PROCEDURE: Patient is a 70-year-old lady with history of diminished visual acuity in her left eye secondary to the development of nuclear and cortical cataract. She has a history of primary open-angle glaucoma of the left eye, indeterminate stage, which is treated with Lumigan nightly. She has already undergone cataract surgery with a single iStent inject in the right eye along with cataract surgery. She now presents for cataract surgery in the left eye with microtrabecular bypass stent as well. PROCEDURE: The correct surgical eye was identified and marked as the left eye and the pupil was dilated in the preoperative area using mydriatics and cycloplegics. The dilated pupil size was 5.5 mm. She elected to proceed without oral sedation. The patient was brought to the operating room where cardiopulmonary monitoring was instituted and surgical time-out was performed, confirming the correct operative eye and IOL power. Topical anesthesia was administered and ophthalmic povidone-iodine 5% was instilled into the conjunctival fornices. Lidocaine gel was applied to the cornea and the pato-ocular area was prepped with Betadine 10% solution and draped in the usual sterile fashion for intraocular surgery, including an aperture drape. A Tegaderm transparent film dressing was cut in half and used to cover the lashes and lid margins. Care was taken to sequester the lashes and lid margins under the Tegaderm dressing. A lid speculum was placed between the lids of the operative eye and the Austin-Logan operating microscope was maneuvered into position. Katie scissors were then used to make a conjunctival buttonhole approximately 6mm posterior to the limbus in the inferonasal quadrant. Blunt dissection was carried out to expose bare sclera, and a blunt-tipped sub-tenon?s anesthesia cannula was introduced and passed posteriorly along the globe where non- preserved plain lidocaine was injected into posterior sub-Tenon?s space. A sideport knife was used to make a paracentesis port superior/superiortemporally. Intraocular phenylephrine/lidocaine was injected into the anterior chamber. The anterior chamber was then filled with viscoelastic. A 2.4mm keratome knife was used to create a half-thickness groove at the limbus and then to construct a three-plane near-clear corneal tunnel extending 2.0mm into clear cornea in the temporal position. . A flap was raised on the anterior capsule and capsulorhexis forceps were used to complete a continuous curvilinear capsulorhexis of 5.0 mm. Balanced salt solution was then used to perform cortical cleaving hydrodissection and nuclear hydrodelineation until the lens could be freely rotated within the capsular bag. The lens nucleus was then disassembled and removed within the capsular bag and iris plane using phacoemulsification. Residual cortical material was removed using the 45-degree angled silicone I/A tip with 0.3mm port. The posterior capsule was carefully polished to remove as much residual lens epithelial cells as safely possible. The capsular bag was then inflated and the anterior chamber deepened with viscoelastic. The lens implant described above was inserted into the capsular bag using the PHILLIP Chevak Injector. A Kuglen hook was used to dial the IOL into position. Residual viscoelastic was removed from posterior to the IOL, leaving viscoelastic in the anterior chamber. Miostat was then injected into the anterior chamber and the pupil was noted to come down round. The anterior chamber was then slightly over-filled with viscoelastic. The microsope and the patient's head were tilted into the ideal position for viewing of the anterior chamber angle. Viscoelastic was placed on the cornea followed by a surgical gonionlens, and the anterior chamber angle landmarks were identified. The [employer] iStent inject handpiece was introduced into the anterior chamber and the insertion sleeve was retracted once the injector was distal to the pupillary margin. The trocar was advanced through the central portion of the trabecular meshwork and into the back wall of Schlemm's canal in the superiornasal quadrant, with care taken to ensure the micro-insertion tube was perpendicular to the trabecular meshwork. The trabecular meshwork was lightly dimpled and the stent was injected without difficulty. The same procedure was then performed in the inferiornasal quradrant. Both stents were then examined and noted to be in good position within the trabecular meshwork. The stents were approximately 2 clock hours apart in the nasal trabecular meshwork. A moderate amount of hemorrhage was present through the stent apertures. The microscope and the patients head were returned to the normal coaxial position. Viscoelatic was then removed from the anterior chamber using the I/A handpiece. The lens implant was noted to center nicely within the capsular bag. The incisi ons were stromally hydrated, and the anterior chamber was reformed using BSS. Then 0.5cc of moxifloxacin 1.0mg/ml were injected into the capsular bag and anterior chamber. The incisions were checked with a Weck spear and found to be secure. Several drops of ophthalmic povidone-iodine 5% were then applied to the eye followed by two drops of Imprimis combination prednisolone/moxifloxacin/nepafenac solution. The drapes were removed and a clear plastic protective eye shield was placed over the eye. The patient was then returned to Same Day Surgery in stable condition.
== END 2020-07-13 11:05 | disposition home or self-care (01) ==
PROVIDERS: PCP Nurse Practitioner; Visit Provider Ophthalmology
PROC: (CPT 0191T; principal; 2020-07-13 10:30)
DX: H25.12 Age-related nuclear cataract, left eye (principal); H25.012 Cortical age-related cataract, left eye; H40.1124 Primary open-angle glaucoma, left eye, indeterminate stage
CPT/HCPCS: 0191T; 66984; V2632; C1783

== ENCOUNTER 2020-12-25 02:03 | Outpatient (CLI) | payer MEDICARE, BC, SELFPAY ==
[2020-12-25 12:33] LABS: HGB 13.6 g/dL (11.2-15.7); MCHC 33.2 % (32.0-36.0); MCV 90.3 fL (80-95); MPV 10.1 fL (8.0-11.0); Platelet Count 257 10^3/uL (130-400); RBC 4.54 10^6/uL (3.93-5.22); RDW 12.8 % (11.7-14.6); RDW-SD 42.5 fL; WBC 7.77 10^3/uL (4.4-10.8)
[2020-12-25 13:39] LABS: ALT 22 U/L (14-59); AST 22 U/L (15-37); Albumin 4.1 g/dL (3.4-5.0); Alkaline Phosphatase 71 U/L (46-116); Anion Gap 7.2 mmol/L (3-11); BUN 14 mg/dL (7-18); Bilirubin, Total 0.8 mg/dL (0.2-1.0); CO2 29.8 mmol/L (21.0-32.0); CREATININE 0.9 mg/dL (0.55-1.02); Calcium 8.9 mg/dL (8.5-10.1); Calculated LDL 153 mg/dL (<100); Chloride 102 mmol/L (98-107); Cholesterol 251 mg/dL (<200); Glucose 83 mg/dL (74-106); HDL Cholesterol 82 mg/dL (40-60); Potassium 3.7 mmol/L (3.5-5.1); Sodium 139 mmol/L (136-145); Total Protein 7.3 g/dL (6.4-8.2); Triglyceride 80 mg/dL (<150)
== END 2020-12-25 02:04 | disposition home or self-care (01) ==
LOC: LBO 02:03
PROVIDERS: PCP Nurse Practitioner; Visit Provider Nurse Practitioner
DX: E78.5 Hyperlipidemia, unspecified (principal); G56.02 Carpal tunnel syndrome, left upper limb; G43.909 Migraine, unspecified, not intractable, without status migrainosus
CPT/HCPCS: 36415; 80053; 80061; 85027

== ENCOUNTER → 2021-02-10 12:51 | Outpatient (BNVA) | payer MEDICARE, BC, SELFPAY | PROVIDERS: PCP Nurse Practitioner; Referring Provider Nurse Practitioner; Visit Provider Nurse Practitioner Gerontology | DX: R32 Unspecified urinary incontinence (principal); N81.9 Female genital prolapse, unspecified | CPT/HCPCS: 99214 ==

== ENCOUNTER 2021-04-20 00:41 | Outpatient (CLI) | payer MEDICARE, SELFPAY ==
--- NOTE | 2021-04-20 07:15 | DI.MAMMO_ITS ---
Exam(s) MAMMO SCREENING EXAM: MAMMO SCREENING CLINICAL HISTORY: screening,Z12.39. TECHNIQUE: Bilateral full field digital CC and MLO mammographic images were obtained with 3D tomosyn thesis and utilizing computer aided detection (CAD). COMPARISON: Prior mammograms were reviewed, the most recent being April 2020. FINDINGS: Skin moles are noted on the inferior aspect of both breasts There are no new spiculated masses nor malignant appearing microcalcification groups. There is no significant architectural distortion nor skin thickening-retraction. IMPRESSION: No radiographic evidence of malignancy. Increasing skin moles noted BI-RADS Category 2 - Benign Findings Breast Density - Category B - Scattered areas of fibroglandular density Breast density Category C or D implies that the patient has dense breast tissue. Dense breast tissue can make it harder to find cancer on a mammogram. Dense breast tissue is also associated with an incr eased risk of breast cancer. This information about the result of the mammogram report was provided to the patient to raise their awareness. Use this report when you speak with the patient about their risks for breast cancer, which includes their family history. At that time, you may recommend additional screening tests (Ultrasoun d or MRI) as these tests may add significant information. A negative radiographic report should not delay biopsy if a dominant or clinically suspicious mass is present. Up to ten percent of cancers are not identified on mammography. A negative report may reinforce clinical impression. Adenosis and dense breasts may obscure an underlying neoplasm. False positive reports average 6 to 10%. Patient will receive a letter notifying them of these results.
== END 2021-04-20 01:01 ==
PROVIDERS: PCP Nurse Practitioner; Visit Provider Nurse Practitioner
DX: Z12.31 Encounter for screening mammogram for malignant neoplasm of breast (principal)
CPT/HCPCS: 77063; 77067

== ENCOUNTER 2022-03-24 04:05 | Outpatient (CLI) | payer MEDICARE, SELFPAY ==
[2022-03-24 10:34] LABS: HCT 41.9 % (36.0-46.0); HGB 14.1 g/dL (11.2-15.7); MCH 30.5 pg (27.0-33.0); MCHC 33.7 % (32.0-36.0); MCV 91 fL (80-95); MPV 10.6 fL (8.0-11.0); Platelet Count 239 10^3/uL (130-400); RBC 4.63 10^6/uL (3.93-5.22); RDW 12.6 % (11.7-14.6); RDW-SD 42.2 fL; WBC 7.49 10^3/uL (4.4-10.8)
[2022-03-24 11:00] LABS: ALT 17 U/L (14-59); AST 25 U/L (15-37); Albumin 4.1 g/dL (3.4-5.0); Alkaline Phosphatase 66 U/L (46-116); Anion Gap 8.4 mmol/L (3-11); BUN 18 mg/dL (7-18); Bilirubin, Total 0.7 mg/dL (0.2-1.0); CO2 28.6 mmol/L (21.0-32.0); Calcium 9.1 mg/dL (8.5-10.1); Calculated LDL 160 mg/dL (<100); Chloride 100 mmol/L (98-107); Cholesterol 246 mg/dL (<200); Estimated GFR 59.86 (mL/min/1.73m2); Glucose 100 mg/dL (74-106); HDL Cholesterol 72 mg/dL (40-60); Potassium 3.9 mmol/L (3.5-5.1); Sodium 137 mmol/L (136-145); TSH (W/Ref FT4) 3.02 uIU/mL (0.36-3.74); Total Protein 7.4 g/dL (6.4-8.2); Triglyceride 74 mg/dL (<150)
== END 2022-03-24 04:06 | disposition home or self-care (01) ==
LOC: LBO 04:05
PROVIDERS: PCP Nurse Practitioner; Referring Provider Nurse Practitioner; Visit Provider Nurse Practitioner
DX: E78.5 Hyperlipidemia, unspecified (principal); F41.8 Other specified anxiety disorders; G47.00 Insomnia, unspecified
CPT/HCPCS: 36415; 80053; 80061; 85027; 84443

== ENCOUNTER 2022-05-05 01:32 | Outpatient (CLI) | payer MEDICARE, SELFPAY ==
--- NOTE | 2022-05-05 08:30 | DI.DEXA_ITS ---
Exam(s) XR DEXA BONE DENSITY W/WO YOKO EXAM: XR DEXA BONE DENSITY W/WO YOKO CLINICAL HISTORY: SCREENING FOR OSTEOPOROSIS IN POSTMENOPAUSAL WOMAN,Z78.0,OSTEOPENIA TECHNIQUE: COMPARISON: Comparison 11/10/2015. FINDINGS: Lateral Spine Image: Unremarkable. No compression deformities identified. Left hip: Total T-Score: -1.5. This compares to -0.8 on the prior examination. Total Z-Score: 0.1 T- and Z-scores: Findings are consistent with osteopenia. Lumbar Spine: Total T-Score: -1.3. This compares to -0.8 on the prior examination. Total Z-Score: 1.0 T- and Z-scores: Findings are consistent with osteopenia. IMPRESSION: Osteopenia in the lumbar spine and left hip.
--- NOTE | 2022-05-05 14:30 | DI.MAMMO_ITS ---
Exam(s) MAMMO SCREENING EXAM: MAMMO SCREENING CLINICAL HISTORY: screening,Z12.39 TECHNIQUE: Bilateral full field digital CC and MLO mammographic images were obtained with 3D tomosyn thesis and utilizing computer aided detection (CAD). COMPARISON: Available for comparison. FINDINGS: Masses/Architectural Distortion: None seen. Microcalcifications: No suspicious pleomorphic-type are seen. Skin Thickening/Nipple Retraction: None. IMPRESSION: 1. No significant interval change with no specific features of malignancy noted. 2. Unless there is more urgent need, screening mammography is recommended, as per [employer] guidelines. BI-RADS Category 1 - Negative Breast Density - Category B - Scattered areas of fibroglandular density Breast density category C or D implies that the patient has dense breast tissue. Dense breast tissue is very common and is not abnormal but dense breast tissue can make it harder to find cancer on a ma mmogram. Also, dense breast tissue may increase their breast cancer risk. This information about the result of the mammogram report was provided to the patient to raise their awareness. Use this report when you speak with the patient about their risks for breast cancer, which includes their family hist ory. At that time, you may recommend for more screening tests (Ultrasound or MRI) as they might be us eful based on their risk. A negative radiographic report should not delay biopsy if a dominant or clinically suspicious mass is present. Up to ten percent of cancers are not identified on mammography. A negative report may reinforce clinical impression. Adenosis and dense breasts may obscure an underlying neoplasm. False positive reports average 6 to 10%. Patient will receive a letter notifying them of these results.
== END 2022-05-05 01:52 ==
PROVIDERS: PCP Nurse Practitioner; Visit Provider Nurse Practitioner
DX: Z12.31 Encounter for screening mammogram for malignant neoplasm of breast (principal); M85.88 Other specified disorders of bone density and structure, other site; Z78.0 Asymptomatic menopausal state
CPT/HCPCS: 77063; 77067; 77080; 99212

== ENCOUNTER 2022-06-03 06:59 | Day surgery (SDC) | payer MEDICARE, SELFPAY ==
--- NOTE | 2022-06-02 21:26 | PDOC.DSDIS_ITS ---
Date of service: 06/03/22 Time of Service: 09:17 Discharge Plan Disposition Patient Disposition: Home Condition: Good Discharge Details Reason For Visit: colon scope Attending Provider: Ciara Covington Primary Care Provider: Neema Duncan Home Meds and New Rx's Prescriptions: Continued eye promise 1 tab PO DAILY Rx Instructions: 06/22/20- reported med. 1 capsule daily. multivitamin [Daily Vitamin] 1 EACH tablet 1 ea PO DAILY calcium carbonate-vitamin D3 [Calcium 500 With D] 1 EACH tablet 1 ea PO BID atorvastatin 20 mg tablet 20 mg PO QPM Qty: 90 3RF fluoxetine 20 mg capsule 20 mg PO DAILY Qty: 30 3RF Discontinued polyethylene glycol 3350 17 gram/dose powder 238 g PO ONCE Qty: 238 0RF Rx Instructions: take per colonoscopy instructions bisacodyl [Dulcolax (bisacodyl)] 5 mg tablet,delayed release (DR/EC) 5 mg PO ONCE Qty: 4 0RF Rx Instructions: take per colonoscopy instructions Discharge Instructions Additional Instructions: DSU Colonoscopy Post- Op Instructions Instructions for Everyone who is given Anesthesia: For your safety, please do the following for the next twenty-four (24) hours: *Do Not operate a motor vehicle (car, truck, motorcycle, etc.) *Do Not drink alcoholic beverages or use any recreational drugs for the first 24 hours or while taking pain medications. The medications in your body may have a reaction that can be dangerous. *Do Not make any important decisions or sign any important papers. Findings: polyps x3, diverticula,cystocele/rectocele Follow up: -My office will send you a letter in 2 to 3 weeks time detailing what type of polyps they were and when we want you to repeat the colonoscopy. -Diverticulosis were noted today- make sure you are moving your bowels on a regular basis and not straining. If you are having difficulties with constipation or straining to move your bowels, I recommend you start a fiber supplement daily, such as Metamucil. 1. No lifting over 20 pounds or strenuous activity for the first 24 hours after your procedure. After 24 hours there are no restrictions on your activity but you may feel fatigued for a few days. 2. After you arrive home you may have a light meal and return to your normal diet as you can tolerate it without feeling sick to your stomach. 3. You may have a bloated, gaseous feeling in your belly (abdomen) after a colonoscopy. Passing gas and belching will help. Walking or lying down on your left side with your knees flexed may relieve the discomfort. Call the office at [phone] (Office) or [phone] (Hospital) right away if you notice any of the following: a.Vomiting of blood or ?coffee ground stools?. b.Rectal bleeding 1Tbsp, blood clots or continuous bleeding. c.Severe belly (abdominal) pain. d.A hard distended belly (abdomen) and an inability to pass gas. 4. Please don?t expect to have a normal BM (bowel movement) for 2-3 days after your procedure. 5. If there are questions regarding the findings of your procedure, please contact your doctor 6. If you are unable to contact your doctor with a problem, contact the hospital at [phone]. 7. Continue all your regular medications unless directed otherwise. I understand the above instructions and have no questions. Signature of Patient or Adult Escort Name of Responsible Adult Escort Signature of Nurse Date/Time Activity:: see above Diet:: see above Discharge Orders Discharge Orders: Discharge Order (Routine); Ordered 06/03/22 Ordered By: Ciara Covington
[2022-06-03 07:15] VITALS: BP 114/68; PULSE 83; RESP 16; TEMP 36.7; O2SAT 96
--- NOTE | 2022-06-03 07:28 | W.PM.OP ---
Date of service: 06/03/22 Time of Service: 07:29 Operative Note Operative Note DATE OF PROCEDURE: 06/03/22 PRE-OP DIAGNOSIS: serrated adenoma possible cystocele POST-OP DIAGNOSIS: other ( multiple polyps /diverticula/cystocele/rectocele) SURGEON: Ciara Covington ANESTHESIA TYPE: General:No Airway Refer to Anesthesia Record ESTIMATED BLOOD LOSS: 1 PATHOLOGY: other COMPLICATIONS: None Patient was transported to: same day Patient's condition: stable Procedure Description: After informed consent was obtained the patient was taken to the procedure room and placed in a left decubitous position. Monitors were applied and a time out was done. The patients name, date of , procedure, allergies to medications and metal in their body was reviewed. modifyied pelvic was performed: Which does show a moderate cystocele and rectocele. Tthe patient was then sedated. Once sedated and comfortable a rectal exam was done. External exam was normal. Internal exam revealed a normal sphincter tone and no palpable masses. The scope was then introduced and retrofelexed. No internal hemorrhoids were identified. The scope was then advanced to the cecum w/out difficulty. The TI and appendiceal orifice were identified. The prep was good BBPS 3 in all segments for total of 9 condition. . The scope was then slowly retracted over 13 minutes back into the rectum. She had x3, flat 5 mm polyps that were are removed with cold biting forcep. These are in the cecum, 80 cm and 90 cm. All specimens are retrieved and no bleeding is noted. She has moderate [place] diverticula confined to the sigmoid colon. There are no signs of active bleeding or infection. The mucosa is otherwise pink and healthy with a normal vascular pattern. The scope was removed and the patient was woken up and taken back to Same day surgery in stable condition. The patient tolerated the procedure well and there were no immediate complications. Follow up: The patient should follow up in 5-7 years, path pending, unless they develop changes in bowel habits or other new gastrointestinal complaints.
--- NOTE | 2022-06-03 07:31 | ANES.PREOP_ITS ---
General Info Date of Service Date Performed: 06/03/22 Height: 5 ft 2.5 in Weight: 56.4 kg Body Mass Index (BMI): 22.4 Surgical Procedure: Operation Date: 06/03/22 08:50 Proposed Procedure Side Surgeon oswaldo Covington, DO Meds Allergies and Home Medications Allergies Allergy/AdvReac Type Severity Reaction Status Date / Time No Known Allergies Allergy Verified 06/03/22 07:25 Home Medication Medication Instructions Recorded calcium carbonate 500 mg-vitamin 1 ea PO BID 06/12/12 D3 10 mcg (400 unit) tablet (Calcium 500 With D) multivitamin (Daily Vitamin tablet) 1 ea PO DAILY 06/12/12 eye promise 1 tab PO DAILY 06/22/20 atorvastatin 20 mg tablet 20 mg PO QPM #90 tabs 03/28/22 fluoxetine 20 mg capsule 20 mg PO DAILY #30 caps 05/16/22 Current Visit Medications: Current Medications Generic Name Dose Route Start Last Admin Trade Name Freq PRN Reason Stop Dose Admin Hyoscyamine Sulfate 0.125 mg 06/03/22 08:51 Hyoscyamine 0.125 Mg Sl/Oral/Chew SL DIRECTED PRN Ringer's Solution 1,000 mls @ 80 mls/hr 06/03/22 06:00 IV 06/03/22 23:59 [facility]ION [facility] IV Miscellaneous Supplies 1 each 06/03/22 06:00 Iv Access IV 06/03/22 23:59 DIRECTED IRVIN Ondansetron HCl 4 mg 06/03/22 08:51 Ondansetron 4 Mg/2 Ml Vial IVP Q4H PRN PRN Nausea / Vomiting Sodium Chloride 0 ml 06/03/22 06:00 Normal Saline Flush 10 Ml Syr IV 06/03/22 23:59 PRN PRN Sodium Chloride 0 ml 06/03/22 06:00 Normal Saline 10 Ml Vial IJ 06/03/22 23:59 DIRECTED PRN Sterile Water 0 ml 06/03/22 06:00 Water,Injection,Sterile 10 Ml Vial IJ 06/03/22 23:59 DIRECTED PRN PFSH Active Problems Active Problems: Problem Status Onset Code Incontinence R32 Vaginal wall prolapse 06/04/12 N81.10 Medical History Medical History Carpal tunnel syndrome of left wrist Cystocele Migraine Nevus Osteopenia (06/21/12) DEXA 2010 T -1.1 Frax risk hip 0.6% major 15% DEXA 2015 T -1.9 femur, -0.8 hip -0.8 spine; FRAX score 18% risk of osteoporotic fracture , 1.9% risk hip fracture Other and unspecified hyperlipidemia (06/21/12) FRS 4%; PCEq risk 4.9% Primary open-angle glaucoma, left eye, indeterminate stage Primary open-angle glaucoma, right eye, indeterminate stage Rectocele (06/12/12) Seborrheic keratoses Sessile serrated polyp of colon (~04/08/19) Tubulovillous adenoma of colon (03/13/15) Dr Andino 03/09/2015 Uterine prolapse (06/04/12) Surgical History Surgical History Colonoscopy - IV Sedation (03/09/15) w/ bx excision Pilar cysts scalp (01/12/17) Dr Ayala H/O colonoscopy (~04/2019) 2020 - tubular adenoma x2. Sessile serrated x1 Hx of cataract surgery Lens implant with glaucome stent Tooth extraction wisdom teeth Tobacco Smoking/Tobacco Use Status: Never Passive smoking exposure: No Second hand exposure: No Alcohol Alcohol Intake: current Alcohol intake frequency: holidays/special occasions only Alcohol type: wine Substance Use Substance use: Never Substance use type: does not use Prental History History 2 Para 2 Hx # Term Pregnancies 2 Multiple births Hx # Pregnancies Ectopic pregnancies AB induced Hx Number of Living Children 2 AB spontaneous Past Pregnancies Del. Date GA/Weeks # Preg Succ Route Wgt Sex Labor Lgth Anesth esia Location Prov Complic 05/06/81 41 No vaginal 3486.991 g Female [facility] 11/27/20 40 No vaginal 3968.933 g Male [facility] Vital Signs and Lab Results Vital Signs Most Recent Vital Signs in EMR: Most Recent Vital Signs Temp Pulse Resp BP Pulse Ox 36.7 C 83 16 114/68 96 06/03/22 07:15 06/03/22 07:15 06/03/22 07:15 06/03/22 07:15 06/03/22 07:15 Lab Results Blood Type / Crossmatch: No Data to Display Complete Blood Count: No Data to Display Complete Metabolic Panel: No Data to Display Liver Function Panel: No Data to Display Coagulation Panel: No Data to Display Cardiac Panel: No Data to Display Arterial Blood Gas: No Data to Display Venous Blood Gas: No Data to Display Pancreas Panel: No Data to Display Thyroid Panel: No Data to Display Infectious Disease: No Data to Display Blood Cultures: No Data to Display Toxicology Panel: No Data to Display Anesthesia Assessment and Plan Anesthesia History Personal History: No History of Anesthesia Complications Family History: No Family History of Anesthesia Complications Exercise Tolerance Exercise Tolerance: Metabolic Equivalents>4 Pertinent Negatives Pertinent Negatives: No Symptoms of GERD and No Major Cardiovascular Symptoms or Complaints Cardiac & Pulmonary Exam Cardiac Exam: Normal S1/S2 Heart Sounds Pulmonary Exam: Clear Bilateral Breath Sounds Implantable Cardiac Device Does patient have a Pacemaker or an ICD?: No Airway Exam Known Difficult Airway: No Mallampati Class: 2 Mouth Opening: Normal (> 3cm) Thyromental Distance: Greater than 3 cm Neck Range of Motion: Full ROM Neck Circumference: Normal Teeth Condition: Normal Dentition ASA Classification ASA Score: ASA 2 Emergency Case?: No NPO Status NPO Status: NPO Clears >2 hours, Solids >8 hours Anesthesia Plan Resuscitation Status: Full Code Anesthesia Technique: General Anesthesia Airway Planned: Natural Airway Monitors Used: Standard Monitors
[2022-06-03 07:32] VITALS: BMI 22.4
[2022-06-03] MEDS: Lactated Ringers 1,000 ML 80 ML IV (07:41)
--- NOTE | 2022-06-03 08:40 | BOWEL_PTH ---
PATIENT: Natalie Gomez LOC: [facility] U#:[id number] AGE/SX: 72/F ROOM: RE06/03/[address]: Ciara Covington : 1950 BED: DIS: 06/03/2022 SPEC #: [id number] RECD: 06/03/22 15:52 STATUS: HUSEYIN REQ #: [id number] STEPHANIE: 06/03/22 08:[address]: Ciara Covington DEPT: Surgical Specimen RECD BY: Nichol Bernal ENTERED: 06/03/22 15:56 SP TYPE: Bowel OTHR DR: Neema Duncan APRN Tissues: 1 - BIOPSY BOWEL 2 - BIOPSY BOWEL 3 - BIOPSY BOWEL Procedures: GROSS AND MICRO LEVEL 4 Comments: [id number]
[2022-06-03 09:04] VITALS: BP 102/52; PULSE 72; RESP 16; TEMP 36; O2SAT 94
--- NOTE | 2022-06-03 09:13 | W.ANESPOSTOP ---
Postoperative Evaluation Date, Time and Location Date Performed: 06/03/22 Time Performed: 09:13 Patient Location: Day Surgery Unit Vital Signs Most Recent Imported Vital Signs: Most Recent Vital Signs Temp Pulse Resp BP Pulse Ox 36 C L 72 16 102/52 L 94 06/03/22 09:04 06/03/22 09:04 06/03/22 09:04 06/03/22 09:04 06/03/22 09:04 Pain Score Most Recent Pain Score: Most Recent Pain Score Pain Level 0 06/03/22 09:04 Assessment Mental Status: Awake (Alert & Oriented to Patient Baseline) Airway and Respiratory Function: Patent airway with normal (patient baseline) respiratory exam Cardiovascular Function: Hemodynamically Stable Hydration Status: Adequately Hydrated Nausea & Vomiting: No Nausea or Vomiting Pain: Pt. Denies Any Pain Peripheral Nerve Block: Patient did not receive a nerve block
[2022-06-03 09:29] VITALS: BP 121/60; PULSE 68; RESP 16; TEMP 36.1; O2SAT 100
--- NOTE | 2022-06-03 13:44 | W.COLOREPORT ---
Date of service: 06/03/22 Time of Service: 08:30 Colonoscopy Report Pre-op diagnosis general: serrated adenoma /possible cystocele Post-op diagnosis procedure note: other ( multiple polyps /diverticula/cystocele/rectocele) Anesthesia Type: General:No Airway Estimated blood loss (mL): 1 Pathology: other Complications: None Disposition: same day Prep: Miralax/Dulcolax Retraction Time: 13 Procedure Description: After informed consent was obtained the patient was taken to the procedure room and placed in a left decubitous position.? Monitors were applied and a time out was done. The patients name, date of , procedure, allergies to medications and metal in their body was reviewed. modifyied pelvic was performed: Which does show a moderate cystocele and rectocele.? Tthe patient was then sedated. Once sedated and comfortable a rectal exam was done. External exam was normal.? Internal exam revealed a normal sphincter tone and no palpable masses. The scope was then introduced and retrofelexed.? No internal hemorrhoids were identified. The scope was then? advanced to the cecum w/out difficulty.? The TI and appendiceal orifice were identified.? The prep was good BBPS 3 in all segments for total of 9 condition.? ? The scope was then slowly retracted over 13 minutes back into the rectum.? She had x3 polyps we removed:? flat 5 mm polyps that were are removed with cold biting forcep.? These are in the cecum, 80 cm and 90 cm.? All specimens are retrieved and no bleeding is noted.? She has moderate wide mouth diverticula confined to the sigmoid colon.? There are no signs of active bleeding or infection.? The mucosa is otherwise pink and healthy with a normal vascular pattern.? The scope was removed and the patient was woken up and taken back to Same day surgery in stable condition. The patient tolerated the procedure well and there were no immediate complications. Follow up: The patient should follow up in 5-7 years, path pending, unless they develop changes in bowel habits or other new gastrointestinal complaints.
== END 2022-06-03 10:40 | disposition home or self-care (01) ==
PROVIDERS: PCP Nurse Practitioner; Visit Provider Surgery
PROC: 0DJD8ZZ Inspection of Lower Intestinal Tract, Via Natural or Artificial Opening Endoscopic (ICD-10-PCS; CPT 45378; principal; 2022-06-03 08:45)
DX: Z09 Encounter for follow-up examination after completed treatment for conditions other than malignant neoplasm (principal); Z86.010 Personal history of colon polyps; K63.5 Polyp of colon; K57.30 Diverticulosis of large intestine without perforation or abscess without bleeding; N81.10 Cystocele, unspecified; N81.6 Rectocele
CPT/HCPCS: 45380; 88305

== ENCOUNTER 2022-06-27 01:18 | Outpatient (CLI) | payer MEDICARE, SELFPAY ==
[2022-06-27 10:20] LABS: ALT 34 U/L (14-59); AST 28 U/L (15-37); Calculated LDL 68 mg/dL (<100); Cholesterol 164 mg/dL (<200); HDL Cholesterol 78 mg/dL (40-60); Triglyceride 92 mg/dL (<150)
== END 2022-06-27 01:19 | disposition home or self-care (01) ==
PROVIDERS: PCP Nurse Practitioner; Visit Provider Nurse Practitioner
DX: E78.5 Hyperlipidemia, unspecified (principal)
CPT/HCPCS: 36415; 80061; 84450; 84460

== ENCOUNTER 2023-04-05 11:23 | Outpatient (REF) | payer MEDICARE, SELFPAY ==
[2023-04-05 12:40] LABS: C Diff PCR Negative (Negative)
[2023-04-05 22:45] LABS: Campylobacter PCR Negative (Negative); Salmonella PCR Negative (Negative); Shiga Toxin PCR Negative (Negative); Shigella/Enteroinvasive Ecoli Negative (Negative)
[2023-04-07 19:41] LABS: Calprotectin 155 mcg/g
== END 2023-04-05 11:24 | disposition home or self-care (01) ==
LOC: LBN 11:23
PROVIDERS: PCP Nurse Practitioner; Visit Provider Nurse Practitioner
DX: R19.7 Diarrhea, unspecified (principal)
CPT/HCPCS: 87493; 87505; 83993; 87177

== ENCOUNTER 2023-04-17 04:44 | Outpatient (CLI) | payer MEDICARE, SELFPAY ==
[2023-04-17 10:16] LABS: ALT 31 U/L (14-59); AST 29 U/L (15-37); Alkaline Phosphatase 78 U/L (46-116); Anion Gap 10.2 mmol/L (3-11); BUN 16 mg/dL (7-18); Bilirubin, Total 0.9 mg/dL (0.2-1.0); CO2 27.8 mmol/L (21.0-32.0); Calcium 9.5 mg/dL (8.5-10.1); Calculated LDL 52 mg/dL (<100); Chloride 104 mmol/L (98-107); Cholesterol 132 mg/dL (<200); Estimated GFR 59.49 (mL/min/1.73m2); Glucose 95 mg/dL (74-106); HDL Cholesterol 64 mg/dL (40-60); Potassium 3.9 mmol/L (3.5-5.1); Sodium 142 mmol/L (136-145); TSH (W/Ref FT4) 3.06 uIU/mL (0.36-3.74); Total Protein 7.7 g/dL (6.4-8.2); Triglyceride 81 mg/dL (<150)
== END 2023-04-17 04:45 | disposition home or self-care (01) ==
LOC: LBO 04:44
PROVIDERS: Absent Provider Nurse Practitioner; PCP Nurse Practitioner; Referring Provider Nurse Practitioner; Visit Provider Nurse Practitioner
DX: E78.5 Hyperlipidemia, unspecified (principal)
CPT/HCPCS: 36415; 80053; 80061; 84443

== ENCOUNTER → 2023-05-10 01:58 | Outpatient (CLI) | payer MEDICARE, SELFPAY ==
--- NOTE | 2023-05-10 07:30 | DI.MAMMO_ITS ---
Exam(s) MAMMO SCREENING EXAM: MAMMO SCREENING CLINICAL HISTORY: screening,z12.39 TECHNIQUE: Mammograms were interpreted according to the usual protocol including computer analysis w [employer] CAD system, tomosynthesis and C-view imaging. COMPARISON: 2016 through 2022 FINDINGS: The breasts are composed of scattered fibroglandular densities, Breast Density category B. No suspicious masses or suspicious microcalcifications are seen. No skin thickening or abnormal axillary lymph nodes are seen. There has been no significant change from prior exams. IMPRESSION: BI-RADS Category 1, Negative mammogram Yearly screening mammography is recommended. Breast Density - Category B, scattered fibroglandular densities. A negative radiographic report should not delay biopsy if a dominant or clinically suspicious mass is present. Up to ten percent of cancers are not identified on mammography. A negative report may reinforce clinical impression. Adenosis and dense breasts may obscure an underlying neoplasm. False positive reports average 6 to 10%. Patient will receive a letter notifying them of these results.
== END ==
PROVIDERS: PCP Nurse Practitioner; Visit Provider Nurse Practitioner
DX: Z12.31 Encounter for screening mammogram for malignant neoplasm of breast (principal); E78.5 Hyperlipidemia, unspecified
CPT/HCPCS: 77063; 77067

== ENCOUNTER 2023-09-13 02:23 | Outpatient (CLI) | payer MEDICARE, SELFPAY ==
[2023-09-13 12:08] LABS: Abs Immature Grans 0.02 10^3/uL (0.0-0.06); Absolute Basophil Count 0.08 10^3/uL (0.0-0.2); Absolute Eosinophil Count 0.13 10^3/uL (0.0-0.7); Absolute Lymphocyte Count 1.52 10^3/uL (1.2-3.4); Absolute Monocyte Count 0.52 10^3/uL (0.1-0.8); Basophils % 1.1 %; Eosinophils % 1.7 %; HCT 40.1 % (36.0-46.0); HGB 13.3 g/dL (11.2-15.7); Immature Grans % 0.3 %; Lymphocytes % 20.3 %; MCH 30.6 pg (27.0-33.0); MCHC 33.2 % (32.0-36.0); MCV 92 fL (80-95); Neutrophils % 69.6 %; Platelet Count 209 10^3/uL (130-400); RBC 4.35 10^6/uL (3.93-5.22); RDW 12.3 % (11.7-14.6); RDW-SD 41.8 fL; WBC 7.47 10^3/uL (4.4-10.8)
[2023-09-13 13:09] LABS: ALT 31 U/L (14-59); AST 25 U/L (15-37); Albumin 3.6 g/dL (3.4-5.0); Alkaline Phosphatase 74 U/L (46-116); Anion Gap 7.1 mmol/L (3-11); BUN 21 mg/dL (7-18); CO2 27.9 mmol/L (21.0-32.0); CREATININE 0.9 mg/dL (0.55-1.02); Calcium 8.7 mg/dL (8.5-10.1); Chloride 104 mmol/L (98-107); Estimated GFR 67.08 (mL/min/1.73m2); Glucose 101 mg/dL (74-106); Potassium 3.8 mmol/L (3.5-5.1); Sodium 139 mmol/L (136-145); TSH (W/Ref FT4) 2.68 uIU/mL (0.36-3.74); Total Protein 6.9 g/dL (6.4-8.2); Vitamin B12 949 pg/mL (193-986); Vitamin D 25 Total 31.4 ng/mL (30-100)
[2023-09-13 13:18] LABS: C-Reactive Protein < 0.50 mg/dL (<or=0.5)
[2023-09-14 10:02] LABS: Lyme Ab w Rflx to Lyme Confirm Negative (Negative)
[2023-09-14 15:13] LABS: ANA Interpretation Negative (Negative)
[2023-09-16] LABS: Anaplasma phagocytophilum Negative (Negative); B. miyamotoi PCR Negative (Negative); Babesia divergens/MO-1 Negative (Negative); Babesia duncani Negative (Negative); Babesia microti Negative (Negative); Ehrlichia chaffeensis Negative (Negative); Ehrlichia ewingii/canis Negative (Negative); Ehrlichia muris eauclairensis Negative (Negative)
== END 2023-09-13 02:24 | disposition home or self-care (01) ==
LOC: LBO 02:24
PROVIDERS: PCP Nurse Practitioner; Visit Provider Nurse Practitioner
DX: R53.83 Other fatigue (principal); M25.50 Pain in unspecified joint; E55.9 Vitamin D deficiency, unspecified
CPT/HCPCS: 36415; 80053; 82306; 87077; 87798; 82607; 84443; 85025; 86038; 86140; 86618; 87086; 87186

== ENCOUNTER 2023-10-02 16:12 | Outpatient (REF) | payer MEDICARE, SELFPAY | END 2023-10-02 16:13 | disposition home or self-care (01) | LOC: LBN 16:12 | PROVIDERS: PCP Nurse Practitioner; Visit Provider Nurse Practitioner | DX: R30.0 Dysuria (principal); N39.0 Urinary tract infection, site not specified; R53.81 Other malaise; R53.83 Other fatigue | CPT/HCPCS: 87086 ==

== ENCOUNTER 2023-11-21 22:30 | Outpatient (REF) | payer MEDICARE, SELFPAY | END 2023-11-21 22:31 | disposition home or self-care (01) | LOC: LBN 22:30 | PROVIDERS: PCP Nurse Practitioner; Visit Provider Nurse Practitioner Family | DX: N30.01 Acute cystitis with hematuria (principal) | CPT/HCPCS: 87086 ==

== ENCOUNTER 2023-11-23 20:43 | Outpatient (REF) | payer MEDICARE, SELFPAY | END 2023-11-23 20:44 | disposition home or self-care (01) | LOC: LBN 20:43 | PROVIDERS: PCP Nurse Practitioner; Visit Provider Physician Assistant Medical | DX: R30.0 Dysuria (principal); B96.89 Other specified bacterial agents as the cause of diseases classified elsewhere | CPT/HCPCS: 87086 ==

== ENCOUNTER 2024-01-30 00:47 | Outpatient (CLI) | payer MEDICARE, SELFPAY ==
--- NOTE | 2024-01-30 06:45 | DI.US_ITS ---
Exam(s) US AXILLA RT EXAM: US AXILLA RT CLINICAL HISTORY: New onset mass of rt axilla,? malignant neoplasm,solitary cyst rt breast, TECHNIQUE: Ultrasound right axilla performed using standard protocol. COMPARISON: No exams were available for comparison FINDINGS: There is an ovoid avascular 0.5 x 0.4 x 0.6 cm subcutaneous complex fluid collection corresponding to the palpable abnormality. Its appearance is most suggestive of a benign lesion such as a sebaceous cyst. No sonographically suspicious lymph nodes are seen in the region. IMPRESSION: Findings most suggestive of a benign lesion such as a sebaceous cyst corresponding to the palpable ab normality. DATA REPOSITORY:
== END 2024-01-30 01:07 ==
LOC: DI 00:47
PROVIDERS: PCP Nurse Practitioner; Visit Provider Family Medicine
DX: R22.31 Localized swelling, mass and lump, right upper limb (principal); R68.89 Other general symptoms and signs; N60.01 Solitary cyst of right breast
CPT/HCPCS: 76642

== ENCOUNTER 2024-02-26 12:14 | Outpatient (CLI) | payer MEDICARE, SELFPAY ==
[2024-02-26 12:23] LABS: Abs Immature Grans 0.03 10^3/uL (0.0-0.06); Absolute Basophil Count 0.08 10^3/uL (0.0-0.2); Absolute Eosinophil Count 0.08 10^3/uL (0.0-0.7); Absolute Lymphocyte Count 1.72 10^3/uL (1.2-3.4); Absolute Monocyte Count 0.61 10^3/uL (0.1-0.8); Basophils % 0.9 %; Eosinophils % 0.9 %; HCT 41.6 % (36.0-46.0); HGB 13.8 g/dL (11.2-15.7); Immature Grans % 0.3 %; Lymphocytes % 19.1 %; MCH 30.1 pg (27.0-33.0); MCHC 33.2 % (32.0-36.0); MCV 91 fL (80-95); MPV 9.5 fL (8.0-11.0); Monocytes % 6.8 %; Platelet Count 221 10^3/uL (130-400); RBC 4.59 10^6/uL (3.93-5.22); RDW 12.7 % (11.7-14.6); RDW-SD 42.4 fL; WBC 9.02 10^3/uL (4.4-10.8)
[2024-02-26 12:44] LABS: Hemoglobin A1C 5.6 % (<5.7)
[2024-02-26 13:00] LABS: Ferritin 65 ng/mL (8-252)
== END 2024-02-26 12:15 | disposition home or self-care (01) ==
LOC: LBO 12:16
PROVIDERS: PCP Nurse Practitioner; Visit Provider Surgery
DX: L08.9 Local infection of the skin and subcutaneous tissue, unspecified (principal); L72.3 Sebaceous cyst; D12.6 Benign neoplasm of colon, unspecified; Z13.1 Encounter for screening for diabetes mellitus; N39.0 Urinary tract infection, site not specified
CPT/HCPCS: 36415; 82728; 83036; 85025

== ENCOUNTER 2024-02-26 13:50 | Outpatient (REF) | payer MEDICARE, SELFPAY ==
[2024-02-26 15:09] LABS: MRSA PCR Negative (Negative)
== END 2024-02-26 13:51 | disposition home or self-care (01) ==
LOC: LBN 13:50
PROVIDERS: PCP Nurse Practitioner; Visit Provider Surgery
DX: L08.9 Local infection of the skin and subcutaneous tissue, unspecified (principal); D12.6 Benign neoplasm of colon, unspecified; L72.3 Sebaceous cyst; Z13.1 Encounter for screening for diabetes mellitus; N39.0 Urinary tract infection, site not specified
CPT/HCPCS: 87641

== ENCOUNTER → 2024-03-11 14:39 | Outpatient (BNVA) | payer MEDICARE, SELFPAY | PROVIDERS: PCP Nurse Practitioner; Referring Provider Nurse Practitioner; Visit Provider Surgery | DX: L98.6 Other infiltrative disorders of the skin and subcutaneous tissue (principal); D24.1 Benign neoplasm of right breast; L72.3 Sebaceous cyst; L81.9 Disorder of pigmentation, unspecified | CPT/HCPCS: 11402 ==

== ENCOUNTER 2024-03-11 14:57 | Outpatient (REF) | payer MEDICARE, SELFPAY ==
--- NOTE | 2024-03-11 15:50 | SKI_PTH ---
PATIENT: Natalie Gomez LOC: [facility] U#:[id number] AGE/SX: 73/F ROOM: RE03/11/[address]: Ciara Covington : 1950 BED: DIS: 03/11/2024 SPEC #: [id number] RECD: 03/11/24 17:17 STATUS: HUSEYIN REJessie #: [id number] STEPHANIE: 03/11/24 15:[address]: Ciara Covington DEPT: Surgical Specimen RECD BY: Roseline Frost ENTERED: 03/11/24 17:18 SP TYPE: RONDA VARELA DR: Neema Duncan APRN Tissues: 1 - SKIN BIOPSY(SHAVE/PUNCH) 2 - SKIN BIOPSY(SHAVE/PUNCH) Procedures: GROSS AND MICRO LEVEL 3 SKIN LEVEL 4 Comments: [id number]
== END 2024-03-11 14:58 | disposition home or self-care (01) ==
LOC: LBN 14:57
PROVIDERS: PCP Nurse Practitioner; Referring Provider Surgery; Visit Provider Surgery
DX: L08.9 Local infection of the skin and subcutaneous tissue, unspecified (principal); L72.3 Sebaceous cyst; D23.70 Other benign neoplasm of skin of unspecified lower limb, including hip; L98.8 Other specified disorders of the skin and subcutaneous tissue; L81.9 Disorder of pigmentation, unspecified
CPT/HCPCS: 87070; 88304; 88305

== ENCOUNTER 2024-03-22 06:12 | Day surgery (SDC) | payer MEDICARE, SELFPAY ==
--- NOTE | 2024-03-21 21:22 | PDOC.DSDIS_ITS ---
Date of service: 03/22/24 Discharge Plan Disposition Patient Disposition: Home Condition: Good Discharge Details Reason For Visit: colon scope Attending Provider: Ciara Covington Primary Care Provider: Neema Duncan Home Meds and New Rx's Prescriptions: Continued Metamucil 3.4 gram/5.4 gram powder 1 tbsp PO DAILY PRN Rx Instructions: mix into at least 8 oz of water or juice before administering trazodone 50 mg tablet See Rx Instructions PO QHS PRN (Reason: sleep) Qty: 90 0RF Rx Instructions: 1/2 to 1 tab nightly PRN eye promise 1 tab PO DAILY Rx Instructions: 06/22/20- reported med. 1 capsule daily. multivitamin [Daily Vitamin] 1 EACH tablet 1 ea PO DAILY calcium carbonate-vitamin D3 [Calcium 500 With D] 1 EACH tablet 1 ea PO BID fluoxetine 20 mg capsule 20 mg PO DAILY Qty: 90 3RF atorvastatin 20 mg tablet 20 mg PO QPM Qty: 90 3RF Discontinued polyethylene glycol 3350 17 gram/dose powder 238 g PO ONCE Qty: 238 0RF Rx Instructions: take per colonoscopy instructions bisacodyl [Dulcolax (bisacodyl)] 5 mg tablet,delayed release (DR/EC) 5 mg PO ONCE Qty: 4 0RF Rx Instructions: take per colonoscopy instructions Discharge Instructions Additional Instructions: DSU Colonoscopy Post- Op Instructions Instructions for Everyone who is given Anesthesia: For your safety, please do the following for the next twenty-four (24) hours: *Do Not operate a motor vehicle (car, truck, motorcycle, etc.) *Do Not drink alcoholic beverages or use any recreational drugs for the first 24 hours or while taking pain medications. The medications in your body may have a reaction that can be dangerous. *Do Not make any important decisions or sign any important papers. Findings: Minor diverticular disease. Make sure you are moving your bowels on a regular basis and not straining. If you find you have problems with constipation or straining, then we recommend you start a fiber product such as Metamucil. Follow up: Repeat colonoscopy in 5 years time 1. No lifting over 20 pounds or strenuous activity for the first 24 hours after your procedure. After 24 hours there are no restrictions on your activity but you may feel fatigued for a few days. 2. After you arrive home you may have a light meal and return to your normal diet as you can tolerate it without feeling sick to your stomach. 3. You may have a bloated, gaseous feeling in your belly (abdomen) after a colonoscopy. Passing gas and belching will help. Walking or lying down on your left side with your knees flexed may relieve the discomfort. Call the office at [phone] (Office) or [phone] (Hospital) right away if you notice any of the following: a.Vomiting of blood or ?coffee ground stools?. b.Rectal bleeding 1Tbsp, blood clots or continuous bleeding. c.Severe belly (abdominal) pain. d.A hard distended belly (abdomen) and an inability to pass gas. 4. Please don?t expect to have a normal BM (bowel movement) for 2-3 days after your procedure. 5. If there are questions regarding the findings of your procedure, please contact your doctor 6. If you are unable to contact your doctor with a problem, contact the hospital at [phone]. 7. Continue all your regular medications unless directed otherwise. I understand the above instructions and have no questions. Signature of Patient or Adult Escort Name of Responsible Adult Escort Signature of Nurse Date/Time Activity:: see above Diet:: see above Discharge Orders Discharge Orders: Discharge Order (Routine); Ordered 03/22/24 Ordered By: Ciara Covington DS: Diagnosis Discharge Diagnosis (1) Encounter for diagnostic colonoscopy due to change in bowel habits: Status: Acute (2) Sessile serrated polyp of colon: Status: Acute Asessment and Plan: The patient is seen and examined after their colonoscopy.? The patient has been able to pass gas.? They are not having abdominal pain.? They have been able to tolerate liquids and a snack.? They do not have any nausea or vomiting.? They are not having any chest pain or shortness of breath.??? They are not having any rectal bleeding. Their vital signs have been stable-see nursing notes. We discussed findings during their colonoscopy, and any biopsies that were done/polyps that were removed. The patient will be sent a letter with any biopsy results, and when to repeat the colonoscopy.-see discharge instructions. Patient was given explicit instructions to follow-up regarding colonoscopy-refer to discharge instructions.? We reviewed resumption of medications. Patient verbalized understanding and discharged in stable and satisfactory condition- See nursing notes.
--- NOTE | 2024-03-21 21:26 | COLE_ITS ---
Date of service: 03/22/24 Time of Service: 08:37 Colonoscopy Report Date of procedure: 03/22/24 Pre-op diagnosis general: sessile serrated Post-op diagnosis procedure note: other (External hemorrhoids and diverticula) Surgeon: Ciara Covington Anesthesia Type: General:No Airway Estimated blood loss (mL): 0 Pathology: none sent Complications: None Disposition: same day Prep: Miralax/Dulcolax Retraction Time: 13 Procedure Description: After informed consent was obtained, explaining risks of the procedure, including but not limits to: bleeding, infections, complications of anesthesia, perforations (which may require antibiotics and /or surgery and stay in the hospital), and abdominal pain/cramping. The patient was taken to the procedure room and placed in a left decubitous position. Monitors were applied and a time out was done. The patients name, date of , procedure, allergies to medications and metal in their body was reviewed. The patient was then sedated. Once sedated and comfortable a rectal exam was done. External exam shows minimal external hemorrhoids. Internal exam revealed a normal sphincter tone and no palpable masses. The previously lubricated Olympus scope was then introduced (see RN notes for scope number) and retrofelexed. No internal hemorrhoids were identified. The scope was then advanced to the cecum without difficulty. The TI and appendiceal orifice were identified. The scope was then slowly retracted over 13 minutes back into the rectum. Polyps: None. Diverticula: pt had a moderate amount of small mouthed diverticula in the sigmoid colon. There were no signs of active bleeding or infection. The mucosa is pink and healthy w/ a normal vascular pattern. The scope was removed, and the patient was woken up and taken back to Same day surgery in stable condition. The patient tolerated the procedure well and there were no immediate complications. Follow up: The patient should follow up in 5 years, unless they develop changes in bowel habits or other new gastrointestinal complaints. [place] Bowel Prep [place] Bowel Prep Right Colon: 3 Left Colon: 3 Transverse Colon: 3 Total Score: 9
[2024-03-22 06:29] VITALS: BP 126/64; PULSE 91; RESP 16; TEMP 36.6; O2SAT 97
[2024-03-22] MEDS: Lactated Ringers 1,000 ML 80 ML IV (06:30)
--- NOTE | 2024-03-22 07:28 | W.ANESPRE ---
General Info Date of Service Date Performed: 03/22/24 Height: 5 ft 2 in Weight: 60.101 kg Body Mass Index (BMI): 24.2 Surgical Procedure: Operation Date: 03/22/24 07:35 Proposed Procedure Side Surgeon oswaldo Covington, DO Meds Allergies and Home Medications Allergies Allergy/AdvReac Type Severity Reaction Status Date / Time No Known Allergies Allergy Verified 03/22/24 06:24 Home Medication ?Medication ?Instructions ?Recorded calcium 500 mg (as 1 ea PO BID 06/12/12 carbonate)-vitamin D3 10 mcg (400 unit) tablet (Calcium 500 With D) multivitamin (Daily Vitamin tablet) 1 ea PO DAILY 06/12/12 eye promise 1 tab PO DAILY 06/22/20 psyllium husk 3.4 gram/5.4 gram 1 tbsp PO DAILY PRN 04/04/23 oral powder (Metamucil) trazodone 50 mg tablet See Rx Instructions PO QHS PRN 04/04/23 sleep #90 tabs fluoxetine 20 mg capsule 20 mg PO DAILY #90 caps 05/08/23 atorvastatin 20 mg tablet 20 mg PO QPM #90 tabs 02/27/24 Current Visit Medications: Current Medications Generic Name Dose Route Start Last Admin Trade Name Freq PRN Reason Stop Dose Admin Hyoscyamine Sulfate 0.125 mg 03/22/24 05:15 Hyoscyamine 0.125 Mg Sl/Oral/Chew SL 04/21/24 05:14 DIRECTED PRN Ringer's Solution 1,000 mls @ 0 mls/hr 03/22/24 06:00 IV 03/22/24 23:59 INFUSION IRVIN Ringer's Solution 1,000 mls @ 80 mls/hr 03/22/24 06:15 IV 04/21/24 06:14 INFUSION IRVIN IV Miscellaneous Supplies 1 each 03/22/24 06:00 Iv Access IV 03/22/24 23:59 DIRECTED IRVIN Ondansetron HCl 4 mg 03/22/24 05:15 Ondansetron 4 Mg/2 Ml Vial IVP 04/21/24 05:14 Q4H PRN PRN Nausea / Vomiting Sodium Chloride 0 ml 03/22/24 06:00 Normal Saline Flush 10 Ml Syr IV 03/22/24 23:59 PRN PRN Sodium Chloride 0 ml 03/22/24 06:00 Normal Saline 10 Ml Vial IJ 03/22/24 23:59 DIRECTED PRN Sterile Water 0 ml 03/22/24 06:00 Water,Injection,Sterile 10 Ml Vial IJ 03/22/24 23:59 DIRECTED PRN PFSH Active Problems Active Problems: Problem Status Onset Code Sessile serrated polyp of colon Acute ~04/08/19 D12.6 Atypical pigmented skin lesion Acute L81.9 Encounter for diagnostic colonoscopy due to change in bowel habits Acute R19.4 Screening for diabetes mellitus (DM) Acute Z13.1 Recurrent infection of skin Acute L08.9 Recurrent UTI Acute N39.0 Soft tissue infection Acute L08.9 Infected sebaceous cyst of skin Acute L72.3, L08.9 Skin lesion, infected Acute L08.9 Sebaceous cyst of right axilla Acute L72.3 UTI (urinary tract infection) due to Enterococcus Acute N39.0, B95.2 Allergic reaction Acute T78.40XA Incontinence Acute R32 Vaginal wall prolapse Acute 06/04/12 N81.10 Medical History Medical History Family history of malignant melanoma History of basal cell carcinoma Tubular adenoma (~05/2022) Sessile serrated polyp of colon (~04/08/19) Nevus Seborrheic keratoses Primary open-angle glaucoma, left eye, indeterminate stage Primary open-angle glaucoma, right eye, indeterminate stage Uterine prolapse (06/04/12) Tubulovillous adenoma of colon (03/13/15) Dr Andino 03/09/2015 Rectocele (06/12/12) Other and unspecified hyperlipidemia (06/21/12) FRS 4%; PCEq risk 4.9% Osteopenia (06/21/12) DEXA 2010 T -1.1 Frax risk hip 0.6% major 15% DEXA 2015 T -1.9 femur, -0.8 hip -0.8 spine; FRAX score 18% risk of osteoporotic fracture , 1.9% risk hip fracture Migraine Carpal tunnel syndrome of left wrist Cystocele Surgical History Surgical History Hx of cataract surgery Lens implant with glaucome stent H/O colonoscopy (~05/2022) 2022-Tubular adenoma 2019 - tubular adenoma x2. Sessile serrated x1 excision Pilar cysts scalp (01/12/17) Dr Ayala Tooth extraction wisdom teeth Colonoscopy - IV Sedation (03/09/15) w/ bx Tobacco Smoking/Tobacco Use Status: Never Passive smoking exposure: No Second hand exposure: No Alcohol Alcohol Intake: current Alcohol intake frequency: holidays/special occasions only Alcohol type: wine Substance Use Substance use: Never Substance use type: does not use Prental History History 2 Para 2 Hx # Term Pregnancies 2 Multiple births Hx # Pregnancies Ectopic pregnancies AB induced Hx Number of Living Children 2 AB spontaneous Past Pregnancies Del. Date GA/Weeks # Preg Succ Route Wgt Sex Labor Lgth Anesthesia Location [facility] 05/06/81 41 No vaginal 3486.991 g Female [place] 11/27/20 40 No vaginal 3968.933 g Male [facility] Vital Signs and Lab Results Vital Signs Most Recent Vital Signs in EMR: Most Recent Vital Signs Temp Pulse Resp BP Pulse Ox 36.6 C 91 H 16 126/64 97 03/22/24 06:29 03/22/24 06:29 03/22/24 06:29 03/22/24 06:29 03/22/24 06:29 Lab Results Blood Type / Crossmatch: No Data to Display Complete Blood Count: White Blood Count 9.02 10^3/uL (4.4-10.8) 02/26/24 12:11 Red Blood Count 4.59 10^6/uL (3.93-5.22) 02/26/24 12:11 Hemoglobin 13.8 g/dL (11.2-15.7) 02/26/24 12:11 Hematocrit 41.6 % (36.0-46.0) 02/26/24 12:11 Platelet Count 221 10^3/uL (130-400) 02/26/24 12:11 Complete Metabolic Panel: Hemoglobin A1c 5.6 % (<5.7) 02/26/24 12:11 Liver Function Panel: No Data to Display Coagulation Panel: No Data to Display Cardiac Panel: No Data to Display Arterial Blood Gas: No Data to Display Venous Blood Gas: No Data to Display Pancreas Panel: No Data to Display Thyroid Panel: No Data to Display Infectious Disease: No Data to Display Blood Cultures: No Data to Display Toxicology Panel: No Data to Display Anesthesia Assessment and Plan Anesthesia History Personal History: No History of Anesthesia Complications Family History: No Family History of Anesthesia Complications Exercise Tolerance Exercise Tolerance: Metabolic Equivalents>4 Pertinent Negatives Pertinent Negatives: No Symptoms of GERD, No Major Cardiovascular Symptoms or Complaints and No Major Pulmonary Symptoms or Complaints Cardiac & Pulmonary Exam Cardiac Exam: Normal S1/S2 Heart Sounds Pulmonary Exam: Clear Bilateral Breath Sounds Implantable Cardiac Device Does patient have a Pacemaker or an ICD?: No Airway Exam Known Difficult Airway: No Mallampati Class: 2 Mouth Opening: Normal (> 3cm) Thyromental Distance: Greater than 3 cm Neck Range of Motion: Full ROM Neck Circumference: Normal Teeth Condition: Normal Dentition ASA Classification ASA Score: ASA 2 Emergency Case?: No NPO Status NPO Status: NPO Clears >2 hours, Solids >8 hours Anesthesia Plan Resuscitation Status: Full Code Anesthesia Technique: General Anesthesia Airway Planned: Natural Airway Monitors Used: Standard Monitors
[2024-03-22 07:29] VITALS: BMI 24.2
[2024-03-22 08:13] VITALS: BP 115/76; PULSE 74; RESP 17; TEMP 36.5; O2SAT 99
[2024-03-22 08:43] VITALS: BP 138/62; PULSE 65; RESP 20; TEMP 36.5; O2SAT 99
--- NOTE | 2024-03-22 09:25 | W.ANESPOSTOP ---
Postoperative Evaluation Date, Time and Location Date Performed: 03/22/24 Time Performed: 08:42 Patient Location: Day Surgery Unit Vital Signs Most Recent Imported Vital Signs: Most Recent Vital Signs Temp Pulse Resp BP Pulse Ox 36.5 C 65 20 138/62 99 03/22/24 08:43 03/22/24 08:43 03/22/24 08:43 03/22/24 08:43 03/22/24 08:43 Pain Score Most Recent Pain Score: Most Recent Pain Score Pain Level 0 03/22/24 06:29 Assessment Mental Status: Awake (Alert & Oriented to Patient Baseline) Airway and Respiratory Function: Patent airway with normal (patient baseline) respiratory exam Cardiovascular Function: Hemodynamically Stable Hydration Status: Adequately Hydrated Nausea & Vomiting: No Nausea or Vomiting Pain: Pt. Denies Any Pain Peripheral Nerve Block: Patient did not receive a nerve block
== END 2024-03-22 08:55 | disposition home or self-care (01) ==
LOC: SUR 06:12
PROVIDERS: PCP Nurse Practitioner; Visit Provider Surgery
PROC: 0DJD8ZZ Inspection of Lower Intestinal Tract, Via Natural or Artificial Opening Endoscopic (ICD-10-PCS; CPT 45378; principal; 2024-03-22 07:30)
DX: R19.4 Change in bowel habit; D12.6 Benign neoplasm of colon, unspecified; K64.4 Residual hemorrhoidal skin tags; K57.30 Diverticulosis of large intestine without perforation or abscess without bleeding
CPT/HCPCS: 45378; G0105; J2704

== ENCOUNTER 2024-04-24 08:06 | Outpatient (CLI) | payer MEDICARE, SELFPAY ==
--- NOTE | 2024-04-24 08:00 | RT.EKG_ITS ---
APPROVED REPORT Exam: Resting ECG Reason for Exam: family H/O prolonged QT Interval Patient Location: O HR:74 bpm ECG Measurements Heart Rate 74 AXIS [place] 159 P 74 QRSd 94 QRS -30 QT 436 T 30 QTc 484 Conclusion Sinus rhythm...normal P axis, V-rate 50- 99 Probable left atrial enlargement...P >50mS, <-0.10mV V1
== END 2024-04-24 08:07 | disposition home or self-care (01) ==
LOC: DI.KIM 08:08
PROVIDERS: PCP Nurse Practitioner; Visit Provider Nurse Practitioner
DX: Z82.49 Family history of ischemic heart disease and other diseases of the circulatory system (principal); Z13.6 Encounter for screening for cardiovascular disorders
CPT/HCPCS: 93010

== ENCOUNTER 2024-05-15 03:33 | Outpatient (CLI) | payer MEDICARE, SELFPAY ==
--- NOTE | 2024-05-15 07:30 | DI.US_ITS ---
APPROVED REPORT EXAM: Comprehensive 2D, Doppler, and color-flow Echocardiogram Patient Location: Out-Patient [place] Hand: Ignacio Wolfe RDCS (AE) Indications: LVH on EKG Other Information Study Quality: Adequate Conclusion Normal left ventricular wall thickness and chamber size. Ejection fraction is 60 to 65%. Wall motio n is normal Normal right ventricular size and function Both atria are normal in size Aortic valve is trileaflet with mild regurgitation There is no additional significant valvular disease Estimated right ventricular systolic pressure is normal at 21 mmHg Wall motion Left Ventricle The left ventricle is normal size. Left ventricular systolic function is normal. The left ventricular ejection fraction is within the normal range. There is normal left ventricular wall thickness. There is normal LV segmental wall motion. The left ventricular diastolic function is normal. There is no v entricular septal defect visualized. LVEF is 60-65%. Right Ventricle The right ventricle is normal size. The right ventricular systolic function is normal. Atria The left atrium size is normal. The right atrium size is normal. The interatrial septum is intact wit h no evidence for an atrial septal defect. Aortic Valve The aortic valve is normal in structure. Aortic valve is trileaflet. There is no aortic valvular sten osis. Mild aortic regurgitation. Mitral Valve The mitral valve is normal in structure. No evidence of mitral valve stenosis. Trace mitral regurgita tion. Tricuspid Valve The tricuspid valve is normal in structure. There is no tricuspid valve stenosis. Mild tricuspid regu rgitation. The RVSP is 21.1 mmHg. Pulmonic Valve The pulmonary valve is normal in structure. There is no pulmonic valvular stenosis. There is no pulmo ancelmo valvular regurgitation. Great Vessels The aortic root is normal in size. The ascending aorta is normal in size. Aortic arch is normal in ca liber. IVC is normal in size and collapses >50% with inspiration. Pericardium There is no pericardial effusion. 2D Dimensions IVSD d PLAX 0.60 cm F: 0.6-1.0 Ao Root d 2.72 cm F: 2.7 - 3.3 LVPW d PLAX 0.62 cm F: 0.6 - 1.0 LVID d PLAX 4.08 cm F: 3.8 - 5.2 LVDs 2.67 cm F: 2.2 - 3.5 LV EF Teichholz 64.2 % FS 34.59 % LV EDV (Teich) 73.4 mL LV ESV (Teich) 26.3 mL Stroke Vol Index (Teich) 30.04 M-Mode TAPSE 2.02 cm (M/F) >1.7 Auto EF LV EDV A4C 69.8 mL LV EDV A2C 87.5 mL LV EDV BP 79.2 mL LV ESV A4C 28.2 mL LV ESV A2C 35.4 mL LV ESV BP 31.4 mL LVEF(%) A4C 59.7 % LVEF(%) A2C 59.5 % LVEF(%) BP 60.3 % LV SV A4C 41.6 ml LV SV A2C 52.1 ml LV SV BP 47.8 ml LV CO A4C 2.7 L/min LV CO A2C 3.3 L/min LV CO BP 3.0 L/min HR A4C 63.72 BPM HR A2C 62.94 BPM LV EDV Index (BP) LA Volume LA Length A4C 3.7 cm LA Length A2C 4.1 cm LA Area A4C s 5.83 cm2 LA Area A2C s 8.26 cm2 LA Vol A4C A-L 7.74 mL LA Vol A2C A-L 14.07 mL LA Vol Biplane A-L 11.0 mL LA Vol/BSA A4C A-L LA Vol/BSA A2C A-L LA Vol/BSA BP A-L 7.0 mL/m2 LA Vol A4C MOD 7.4 mL LA Vol A2C MOD 13.3 mL LA Vol BP MOD 10.4 mL RA Volume RA Area A4C 6.3 cm2 RA ESV A4C (A-L) 11.8mL RA Vol/BSA A4C A-L RA Length A4C 2.9 cm RA ESV A4C (MOD) 11.1mL LV Diastology MV E' medial 0.065 (>0.07 m/s) MV E Vmax 0.60 (0.4-1.3 m/s) MV E/E' MED 9.36 (<14) MV A Vmax 0.65 (0.4-1.3 m/s) MV E' lateral 0.055 (>0.1 m/s) E/A Ratio 0.9 MV E/E' LAT 10.90 (<14) MV E' Average 0.060 m/s MV E/E'(average) 10.07 Aortic Valve AoV Vmax 1.15 m/s LVOT Vmax 0.97 m/s AoV Peak Grad 19.6 mmHg LVOT Peak Grad 3.8 mmHg AoV Area (Vmax) 1.86 cm2 LVOT VTI 0.218 m AoV VTI 0.267 m LVOT Mean Grad 2.0 mmHg AoV Mean Mathieu. 0.81 m/s LVOT SV 47.96 mL AoV Mean Grad 3.0 mmHg LVOT Diam s 1.65 cm AoV Area (VTI) 1.79 cm2 AV Regurg Peak Gr. 5.33 mmHg Velocity Ratio 0.84 AR Decel [place] 0.9m/sec2 AR DT 3135 msec AR PHT 909 msec AR Vmax 2.91 m/s Mitral Valve MV DT 222 (160-240 msec) MV Vmax TIPS 0.64 m/s MV Mean Grad 0.7 (<2mmHg) MV VTI 0.276 m Pulmonary Valve PV Vmax 0.93 (0.5-1.5 m/s) RVOT Vmax 0.66 m/s PV Peak Grad 3.5 mmHg RVOT Peak Gr. 1.7 mmHg PV Mean Mathieu 0.61 m/s RVOT VTI 0.150 m PV Mean Grad 1.8 mmHg RVOT Mean Gr. 1.1 mmHg Tricuspid Valve RA Pressure 3.00 mmHg TR Vmax 2.13 m/s TR Peak Grad 18.1 mmHg RVSP (TR) 21.1 mmHg
--- NOTE | 2024-05-15 09:20 | DI.MAMMO_ITS ---
Exam(s) MAMMO SCREENING EXAM: MAMMO SCREENING CLINICAL HISTORY: screening,z12.39 TECHNIQUE: Bilateral full field digital CC and MLO mammographic images were obtained with 3D tomosyn thesis and utilizing computer aided detection (CAD). COMPARISON: Available for comparison. FINDINGS: Masses/Architectural Distortion: No suspicious masses or areas of architectural distortion are presen t. Microcalcifications: No suspicious pleomorphic-type are seen. Skin Thickening/Nipple Retraction: None. IMPRESSION: 1. No significant interval change with no specific features of malignancy noted. 2. Unless there is more urgent need, screening mammography is recommended, as per [employer] guidelines. BI-RADS Category 1 - Negative Breast Density - Category B - Scattered areas of fibroglandular density Breast density category C or D implies that the patient has dense breast tissue. Dense breast tissue is very common and is not abnormal but dense breast tissue can make it harder to find cancer on a ma mmogram. Also, dense breast tissue may increase their breast cancer risk. This information about the result of the mammogram report was provided to the patient to raise their awareness. Use this report when you speak with the patient about their risks for breast cancer, which includes their family hist ory. At that time, you may recommend for more screening tests (Ultrasound or MRI) as they might be us eful based on their risk. A negative radiographic report should not delay biopsy if a dominant or clinically suspicious mass is present. Up to ten percent of cancers are not identified on mammography. A negative report may reinforce clinical impression. Adenosis and dense breasts may obscure an underlying neoplasm. False positive reports average 6 to 10%. Patient will receive a letter notifying them of these results.
== END 2024-05-15 03:53 ==
LOC: DI 03:33
PROVIDERS: PCP Nurse Practitioner; Visit Provider Nurse Practitioner
DX: Z12.31 Encounter for screening mammogram for malignant neoplasm of breast (principal); R94.31 Abnormal electrocardiogram [ECG] [EKG]; R92.323 Mammographic fibroglandular density, bilateral breasts
CPT/HCPCS: 77063; 77067; 93306

== ENCOUNTER 2024-07-11 00:33 | Outpatient (CLI) | payer MEDICARE, SELFPAY ==
--- NOTE | 2024-07-11 06:15 | DI.US_ITS ---
Exam(s) US RENAL EXAM: US RENAL CLINICAL HISTORY: mom and brother kidney disease/cancer,low back pain,z80.51,m54.50 TECHNIQUE: Ultrasound of both kidneys performed using standard protocol. COMPARISON: US US ECHOCARDIOGRAM from 05/15/2024 FINDINGS: RIGHT KIDNEY: Measures 8.1 cm in length. No cysts evident. Normal cortical thickness and corticomedullary different iation .No solid masses No intrarenal calculi nor hydronephrosis. LEFT KIDNEY: Measures 10.1 cm in length. There is a 4.3 x 2.2 cm cyst near the upper pole of the left kidney. No rmal cortical thickness and corticomedullary differentiaion. No solids masses. No intrarenal calculi nor hydonephrosis. URINARY BLADDER: Prevoid volume is 282 cc Postvoid volume is 36 cc No evidence of bladder mass nor diverticuli. Ureterovesical jets: Both identified and appear symmetrical IMPRESSION: 1. No significant ultrasound findings in the kidneys. There is a benign 4.3 cm cyst in the left kid juan carlos which not require further workup. 2. No obvious focal findings in the urinary bladder although there is mild increased postvoid residu al of 36 cc post micturition DATA REPOSITORY:
== END 2024-07-11 00:53 ==
LOC: DI 00:34
PROVIDERS: PCP Nurse Practitioner; Visit Provider Nurse Practitioner
DX: Z80.51 Family history of malignant neoplasm of kidney (principal); M54.50 Low back pain, unspecified; N20.0 Calculus of kidney
CPT/HCPCS: 76770

== ENCOUNTER 2024-09-27 00:06 | Outpatient (CLI) | payer MEDICARE, SELFPAY ==
--- NOTE | 2024-09-27 07:48 | DI.US_ITS ---
Exam(s) US PELVIS TRANSVAGINAL EXAM: US PELVIS TRANSVAGINAL CLINICAL HISTORY: Check stripe,postmenopausal bleeding,n95.0 TECHNIQUE: Transabdominal and transvaginal imaging was performed using standard protocol. COMPARISON: No exams were available for comparison FINDINGS: The bladder is well distended and unremarkable. UTERUS: Anteverted. 5.4 x 2.9 x 4.1 cm Endometrium: 1 mm . No focal abnormality. Small amount of fluid seen within the endometrium. Myometrium: Uterine arcuate arterial calcifications. Cervix: Unremarkable. OVARIES: Right: Cyst or mass: None. Left: Cyst or mass: None. DOPPLER: Color: Symmetric and uniform flow to both ovaries. No hyperemia. CUL-DE-SAC: Free fluid: None. IMPRESSION: 1. The endometrium it measures 1 millimeter in thickness and appears homogeneous. There is a small amount fluid within the endometrial cavity. 2. Unremarkable bilateral ovaries. DATA REPOSITORY:
== END 2024-09-27 00:26 ==
LOC: DI 00:07
PROVIDERS: PCP Nurse Practitioner; Visit Provider Obstetrics & Gynecology
DX: N95.0 Postmenopausal bleeding (principal)
CPT/HCPCS: 76830; 76856